=== PATIENT | male | born 1970 | race Hispanic/Latino ===

== ENCOUNTER 2018-03-07 16:55 | Inpatient (IN) | payer SELFPAY ==
[2018-03-07 17:13] LABS: #Basophils 0.1 thou/uL (0.0-0.2); #Eosinphils 0.1 thou/uL (0.0-0.7); #Lymphocytes 3.7 thou/uL (1.20-3.40); #Monocytes 0.4 thou/uL (0.11-0.59); #Neutrophils 5.9 thou/uL (1.40-6.50); %Basophils 0.9 % (0.0-1.0); %Lymphocytes 36.1 % (21.0-51.0); %Monocytes 3.7 % (0.0-10.0); %Neutrophils 58.2 % (42.0-75.0); Hemoglobin 15.1 g/dL (14.0-18.0); Mean Corpuscular HGB CONC 32.3 g/dL (32.0-36.0); Mean Corpuscular Hemoglobin 33.6 pg (27.0-31.0); Mean Platelet Volume 9.6 fL (7.4-10.4); Platelet Count 126 thou/uL (130-400); RBC Distribution Width 12.6 % (11.5-14.5); Red Blood Cell (RBC) Count 4.49 mill/uL (4.70-6.10); White Blood Cell (WBC) Count 10.2 thou/uL (4.8-10.8)
[2018-03-07] MEDS ORDERED: EPINEPHrine 1 MG, Admixture Fee 1 EACH in Dextrose 5% in Water 250 ML IVPB SCH (17:15)
[2018-03-07 17:17] LABS: Actual Bicarbonate (HCO3a) 16.9 mEq/L (22-26); Base Excess (BEa) -12.5 mEq/L (0 (+/-) 2.5); CO2 Tension 52.6 mmHg (35.0-45.0); O2 Tension (PaO2) 90.1 mmHg (80.0-100.0); pH, Arterial 7.12 (7.35-7.45)
[2018-03-07] MEDS ORDERED: Naloxone HCl 0.4 mg/ml Vial ONE (17:17)
[2018-03-07 17:18] LABS: Analyzer IN Cardio ER; Calcium, Ionized 1.1 mmol/L (1.12-1.30); Puncture Site RBA
[2018-03-07 17:31] LABS: Bilirubin Negative (Negative); Blood, Urine Trace (Negative); Clarity CLEAR (Clear); Glucose, Urine (Dipstick) >=1000 mg/dL (Negative); Leukocyte Negative (Negative); Nitrite Negative (Negative); Protein, Urine (Dipstick) 30 mg/dL (Neg-Trace); Specific Gravity, Urine 1.037 (1.002-1.036); Urobilinogen 0.2 mg/dL (0.2-1.0); pH, Urine 5.5 (5.0-9.0)
[2018-03-07 17:33] LABS: Pathc Cast-AUWi Flag 1.01 (0-2.49)
[2018-03-07 17:34] LABS: ALT (SGPT) 740 U/L (8-55); AST (SGOT) 1405 U/L (5-34); Albumin 3.4 g/dL (3.5-5.0); Alkaline Phosphatase 262 U/L (40-150); Anion Gap 23 mmol/L (10-20); BUN (Urea Nitrogen) 15 mg/dL (8.4-25.7); Bilirubin, Total 0.6 mg/dL (0.2-1.2); CK (CPK) 117 U/L (30-200); Calc. Creatinine Clearance 0 mL/min (70-130); Calcium 8.6 mg/dL (7.8-10.44); Carbon Dioxide 15 mmol/L (22-29); Chloride 94 mmol/L (98-107); Estimated GFR-MDRD 43; Globulin 2.8 g/dL (2.4-3.5); Potassium 4.1 mmol/L (3.5-5.1); Protein, Total 6.2 g/dL (6.0-8.3); Sodium 128 mmol/L (136-145)
[2018-03-07 17:39] LABS: CKMB 4.6 ng/mL (0-6.6)
[2018-03-07 17:42] LABS: Glucose 975 mg/dL (70-105)
[2018-03-07 17:42] LABS: Amphetamine Not Detected (NotDetected); Barbiturates Screen Not Detected (NotDetected); Benzodiazepine Screen Not Detected (NotDetected); Cocaine Metabolite Screen Not Detected (NotDetected); Medtox Control Line Valid? VALID (VALID); Medtox Reader # READER 4; Methadone Not Detected (NotDetected); Methamphetamine Not Detected (NotDetected); Opiate Screen Not Detected (NotDetected); Oxycodone Screen Not Detected (NotDetected); Phencyclidine (PCP) Not Detected (NotDetected); THC/Cannabinoid Screen Not Detected (NotDetected); Tricyclic Screen Not Detected (NotDetected)
[2018-03-07 17:43] LABS: RBC/HPF None Seen HPF (0-3); Squamous Epithelial 0-3 HPF (0-3); WBC/HPF None Seen HPF (0-3)
[2018-03-07 17:44] LABS: Bacteria/HPF None Seen HPF (None Seen); Hyaline Casts/LPF NONE SEEN LPF (0-3 Hyaline)
[2018-03-07 17:45] LABS: Troponin I 0.582 ng/mL (< 0.028)
--- NOTE | 2018-03-07 17:54 | RAD ---
AP VIEW CHEST: INDICATIONS: Emergency examination with chest pain. FINDINGS: There is an ET tube tip projecting 5.8 cm from the level of the jason. A gastric catheter projects in the region of the gastric cardia. There is bilateral perihilar air space opacity and pulmonary va scular congestion. Heart size is within normal limits. No focal consolidation, pleural effusion, or pneumothorax is evident. IMPRESSION: 1. Intubation with gastric catheter placement. 2. Pulmonary vascular congestion with perihilar air space opacities suspicious for edema. Heart siz e is within normal limits. 3. No pneumothorax demonstrate. POS: [facility]
[2018-03-07] MEDS ORDERED: Lidocaine 1% (PF) 30 ML VIAL ONE (17:57)
[2018-03-07] MEDS ORDERED: HumaLOG 300 UNITS/3 ML VIAL ONE (18:01)
[2018-03-07] MEDS ORDERED: Insulin Regular 300 UNITS/3 ML VIAL ONE (18:03)
[2018-03-07] MEDS ORDERED: Metoprolol Tartrate 5 MG/5 ML VIAL ONE ×2 (18:17→19:00)
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
[2018-03-07] MEDS ORDERED: Insulin Regular 100 units/100 ml in NS IVPB SCH (18:30)
[2018-03-07] MEDS ORDERED: NS 0.9% w/ 40 MEQ KCL 1,000 ML IV SCH (18:30)
[2018-03-07] MEDS ORDERED: Heparin 5,000 UNITS/ML VIAL ONE (18:32)
[2018-03-07] MEDS ORDERED: Mag-Al 1200 mg/1200 mg/30 ML UDCUP PO PRN (18:38)
[2018-03-07] MEDS ORDERED: Bisacodyl 10 MG SUPP PR PRN (18:38)
[2018-03-07] MEDS ORDERED: NS 0.9% w/ 20 MEQ KCL 1,000 ML IV PRN ×2 (18:38)
[2018-03-07] MEDS ORDERED: D5 1/2 NS w/20 mEq KCL 1,000 ML IV PRN (18:38)
[2018-03-07] MEDS ORDERED: CCU Electrolyte Replacement 1 EACH IVPB ONE ×2 (18:38)
[2018-03-07] MEDS ORDERED: Milk Of Magnesia 30 ML UDCUP PO PRN (18:38)
[2018-03-07] MEDS ORDERED: Ondansetron HCl/PF 4 MG/2 ML Vial IVP PRN (18:38)
[2018-03-07] MEDS ORDERED: Sodium Chloride 0.9% 1,000 ML IV PRN ×4 (18:38)
[2018-03-07] MEDS ORDERED: Dextrose 5 %-0.45 % NaCl 1,000 ML IV PRN (18:38)
[2018-03-07] MEDS ORDERED: Acetaminophen 650 MG Suppository PR PRN (18:38)
[2018-03-07] MEDS ORDERED: Fentanyl 100 MCG/2 ML VIAL ONE (18:44)
[2018-03-07] MEDS ORDERED: Ventilator Sedation Protocol 1 EACH FS SCH (18:45)
[2018-03-07] MEDS ORDERED: Fentanyl BOLUS 250 ML IVPB PRN (18:51)
[2018-03-07] MEDS ORDERED: fentaNYL Citrate/PF 2,000 MCG in Sodium Chloride 0.9% 60 ML IV SCH (18:51)
[2018-03-07] MEDS ORDERED: DISCONTINUE PREVIOUS NARCOTIC PAIN MEDICATIONS AND BENZODIAZEPINES FS SCH (18:51)
[2018-03-07] MEDS ORDERED: Morphine 4 MG/ML VIAL SLOW IVP PRN (18:51)
[2018-03-07] MEDS ORDERED: Propofol BOLUS 1,000 MG/100 ML VIAL IV PRN (18:51)
[2018-03-07] MEDS ORDERED: CCU ELECTROLYTE REPLACEMENT PROTOCOL FS PRN (18:53)
[2018-03-07] MEDS ORDERED: Potassium Phosphate 12 MMOL in Sodium Chloride 0.9% 250 ML 250 ML IV PRN (18:53)
[2018-03-07] MEDS ORDERED: Magnesium Oxide 400 MG TAB PO PRN ×2 (18:53)
[2018-03-07] MEDS ORDERED: Potassium Phosphate 9 MMOL in Sodium Chloride 0.9% 100 ML IVPB PRN (18:53)
[2018-03-07] MEDS ORDERED: Potassium Chloride 20 MEQ TAB PO PRN (18:53)
[2018-03-07] MEDS ORDERED: Potassium Chloride 40 MEQ in Sodium Chloride 0.9% 250 ML 250 ML IVPB PRN (18:53)
[2018-03-07] MEDS ORDERED: Magnesium 2 GM/NS 0.9% 100 ML 2 GM in Premix Bag 1 BAG IVPB PRN (18:53)
[2018-03-07] MEDS ORDERED: Potassium Phosphate 15 MMOL in Sodium Chloride 0.9% 250 ML 250 ML IV PRN (18:53)
[2018-03-07 18:55] LABS: Anion Gap 22 mmol/L (10-20); BUN (Urea Nitrogen) 16 mg/dL (8.4-25.7); Calc. Creatinine Clearance 0 mL/min (70-130); Carbon Dioxide 14 mmol/L (22-29); Chloride 102 mmol/L (98-107); Estimated GFR-MDRD 54; Potassium 3.5 mmol/L (3.5-5.1); Sodium 134 mmol/L (136-145)
[2018-03-07] MEDS ORDERED: Nitroglycerin 50 MG/250 ML BOT ONE (19:00)
[2018-03-07] MEDS ORDERED: EPINEPHrine 1 MG/10 ML Abboject SYRINGE ONE (19:00)
[2018-03-07] MEDS ORDERED: Midazolam HCl 2 mg/2 ml Vial ONE ×2 (19:00→19:34)
[2018-03-07 19:07] LABS: Glucose 734 mg/dL (70-105)
[2018-03-07] MEDS ORDERED: Lorazepam 2 MG/ML VIAL ONE ×2 (19:25→19:51)
[2018-03-07 19:28] LABS: HBCM Index 0.05 S/CO (0-0.79); HBSAg Index 0.24 S/CO (0-0.99); Hep A IgM AB Non-Reactive (NonReactive); Hep A IgM S/CO 0.14 S/CO (0-0.79); Hep B Surf Ag Non-Reactive S/CO (NonReactive); Hep C IgG Ab Non-Reactive (NonReactive); Hep C Index 0.25 S/CO (0-0.79); Hepatitis B Core IGM Abs Non-Reactive (NonReactive)
[2018-03-07] MEDS ORDERED: Heparin 25,000 units/D5W 500 ML IVPB SCH (19:45)
[2018-03-07] MEDS ORDERED: Heparin 10,000 UNITS/ 10 ML VIAL SLOW IVP SCH (19:45)
[2018-03-07] MEDS ORDERED: Amiodarone HCl 450 MG, Admixture Fee 1 EACH in Dextrose 5% in Water 250 ML IVPB SCH (19:45)
[2018-03-07] MEDS ORDERED: Amiodarone In Dextrose 200 ML IVPB SCH (19:45)
[2018-03-07 20:10] LABS: Hemoglobin 14.8 g/dL (14.0-18.0); Platelet Count 151 thou/uL (130-400)
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
[2018-03-07 20:36] LABS: CKMB 21.2 ng/mL (0-6.6); Troponin I 2.578 ng/mL (< 0.028)
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
[2018-03-07] MEDS ORDERED: Famotidine/PF 20 mg/2ml Vial SLOW IVP SCH (21:00)
[2018-03-07] MEDS ORDERED: Heparin 10,000 UNITS/1 ML VIAL ONE (21:37)
[2018-03-07] MEDS ORDERED: Bivalirudin 250 MG VIAL ONE (21:41)
[2018-03-07] MEDS ORDERED: DOPamine 400 MG/D5W 250 ML 250 ML ONE (21:41)
[2018-03-07] MEDS ORDERED: Heparin 25,000 units/D5W 500 ML ONE (22:23)
[2018-03-07] MEDS ORDERED: Clopidogrel Bisulfate 300 MG TAB PER TUBE SCH (23:00)
[2018-03-07] MEDS ORDERED: DOPamine 400 MG/D5W 250 ML 250 ML IVPB SCH (23:15)
[2018-03-07] MEDS ORDERED: Famotidine 20 MG TAB PER TUBE SCH (23:45)
[2018-03-07] MEDS: Sodium Chloride 0.9% 1,000 ML IV SCH (23:53)
[2018-03-07 23:59] LABS: Anion Gap 17 mmol/L (10-20); BUN (Urea Nitrogen) 16 mg/dL (8.9-20.6); Calc. Creatinine Clearance 72 mL/min (70-130); Calcium 7.5 mg/dL (7.8-10.44); Carbon Dioxide 16 mmol/L (22-29); Chloride 110 mmol/L (98-107); Estimated GFR-MDRD 58; Potassium 4.5 mmol/L (3.5-5.1); Sodium 138 mmol/L (136-145)
[2018-03-08 00:03] LABS: Glucose 589 mg/dL (70-105)
[2018-03-08 00:26] LABS: Troponin I 94.554 ng/mL (< 0.028)
[2018-03-08] MEDS: Propofol 1,000 MG/100 ML VIAL IV PRN ×3 (00:28→16:44)
[2018-03-08] MEDS: Lorazepam 2 MG/ML VIAL SLOW IVP PRN ×2 (02:18→15:18)
[2018-03-08] MEDS: Vecuronium 10 MG VIAL IV PRN ×3 (04:16→12:30)
[2018-03-08 05:46] LABS: Band 20 % (5-11); Hemoglobin 15.3 g/dL (14.0-18.0); Lymphocytes 11 % (21-51); MDiff Complete? YES; Mean Corpuscular HGB CONC 32.6 g/dL (32.0-36.0); Mean Corpuscular Hemoglobin 32.4 pg (27.0-31.0); Mean Corpuscular Volume 99.2 fl (80.0-94.0); Mean Platelet Volume 9.1 fL (7.4-10.4); Monocytes 4 % (0-10); Myelocyte 1 % (0-0); Neutrophil 63 % (42-75); Platelet Count 133 thou/uL (130-400); RBC Distribution Width 12.7 % (11.5-14.5); Reactive Lymphocytes 1 % (0-10); Red Blood Cell (RBC) Count 4.72 mill/uL (4.70-6.10); White Blood Cell (WBC) Count 8.4 thou/uL (4.8-10.8)
[2018-03-08 06:26] LABS: Calcium 8.5 mg/dL (7.8-10.44)
[2018-03-08 06:31] LABS: ALT (SGPT) 857 U/L (8-55); AST (SGOT) 1887 U/L (5-34); Albumin 3.3 g/dL (3.5-5.0); Alkaline Phosphatase 196 U/L (40-150); Anion Gap 11 mmol/L (10-20); BUN (Urea Nitrogen) 14 mg/dL (8.9-20.6); Bilirubin, Direct 0.3 mg/dL (0.1-0.3); Bilirubin, Total 0.4 mg/dL (0.2-1.2); Calc. Creatinine Clearance 105 mL/min (70-130); Carbon Dioxide 23 mmol/L (22-29); Chloride 114 mmol/L (98-107); Estimated GFR-MDRD 90; Globulin 2.5 g/dL (2.4-3.5); Glucose 287 mg/dL (70-105); Potassium 3.7 mmol/L (3.5-5.1); Protein, Total 5.8 g/dL (6.0-8.3); Sodium 144 mmol/L (136-145)
[2018-03-08 06:42] LABS: Troponin I 166.723 ng/mL (< 0.028)
[2018-03-08] MEDS ORDERED: Metoprolol Tartrate 5 MG/5 ML VIAL IVP PRN (06:54)
[2018-03-08] MEDS: Sodium Chloride 0.9% 1,000 ML IV SCH ×3 (07:00→20:04)
[2018-03-08] MEDS ORDERED: Sodium Chloride 0.9% 250 ML 250 ML IVPB SCH (07:00)
[2018-03-08 07:19] LABS: Actual Bicarbonate (HCO3a) 17.7 mEq/L (22-26); Base Excess (BEa) -9.4 mEq/L (0 (+/-) 2.5); CO2 Tension 42.6 mmHg (35.0-45.0); Hematocrit-ABG 40.9 % (42.0-52.0); O2 Tension (PaO2) 107.6 mmHg (80.0-100.0); pH, Arterial 7.24 (7.35-7.45)
[2018-03-08 07:20] LABS: Calcium, Ionized 1.2 mmol/L (1.12-1.30); Puncture Site ALINE
--- NOTE | 2018-03-08 07:38 | ULT ---
GALLBLADDER ULTRASOUND: Date: 03/08/18 HISTORY: Right upper quadrant pain. FINDINGS: Real-time imaging of the right upper quadrant demonstrates a normal appearing gallbladder. Common enio t is 4.0 mm. Technologist reports a negative ultrasound Fuentes's sign. The liver is of increased echo genicity, it measures 18.6 cm in length. Pancreas is fairly well visualized and normal. Right kidney is normal size and nonobstructed. IMPRESSION: Fatty changes of the liver. POS: [facility]
--- NOTE | 2018-03-08 07:43 | PRG ---
DATE OF SERVICE: 03/08/2018 This is 45 minutes critical care time. Mr. Guallpa remains in the CCU on mechanical ventilation. He is under hypothermia protocol. He did undergo cardiac catheterization last night. I believe he did have occlusion of his right coronary a rtery and required stenting. He has had difficulty during the night with shivering from the hypother milka and has required paralysis for that. PHYSICAL EXAMINATION: VITAL SIGNS: His temperature is currently 95.4, pulse 76, blood pressure 109/65. His intake and out take totals are not complete yet, but he is having reasonable urine output with 2380 out from the Fo regina. NEURO: Neurologically he is difficult to assess because he is currently paralyzed, although last nig ht he did have pupillary reflexes and did withdraw. HEENT: Otherwise, unremarkable. NECK: No JVD. LUNGS: Coarse rhonchi. CARDIOVASCULAR: S1, S2, tachycardic without murmur. ABDOMEN: Soft, nontender, nondistended. EXTREMITIES: No edema. LABORATORY DATA: White blood cell count 8.4, hemoglobin 15, hematocrit 46.9, platelet count 133. PT T 111, pH 7.24, pCO2 42, PO2 of 107 on SIMV rate 14, tidal volume 500, PEEP 5, pressure support 10, F iO2 50%. Sodium 144, potassium 3.7, chloride 114, CO2 23, BUN 14, creatinine 0.9, glucose 287. Chest x-ray demonstrates an endotracheal tube that is above the jason. Lung olivares with some perihi lar edema. ASSESSMENT: 1. Cardiac arrest secondary to coronary artery disease. The arrest was V-tach, V-fib and he was chloe n for a considerable amount of time. 2. Acute respiratory failure secondary to cardiac arrest. 3. Hyperglycemia. 4. Transaminitis, likely secondary to shock liver. PLAN: 1. Continue hypothermia and begin rewarming later tonight. 2. Hold off on tube feeds until he is out of the hypothermia. 3. Continue insulin drip. 4. Monitor labs including transaminases daily. 5. Update family when they present themselves.
[2018-03-08] MEDS: Norepinephrine 8 MG/0.9% NS 250 ML IVPB PRN ×3 (08:09→23:28)
--- NOTE | 2018-03-08 08:25 | PDOC.PN ---
- Subjective Encounter Start Date: 03/08/18 Encounter Start Time: 08:22 Subjective: intubated, sedated - Objective Resuscitation Status: Resuscitation Status FULL:Full Resuscitation MAR Reviewed: Yes Vital Signs & Weight: Vital Signs (12 hours) Temp Pulse Resp BP Pulse Ox 03/08/18 06:37 122 H 90/56 L 03/08/18 06:31 123 H 14 03/08/18 06:00 95.4 F L 14 03/08/18 05:00 96.3 F L 03/08/18 04:00 14 03/08/18 03:14 103 H 87/62 L 03/08/18 02:00 96.0 F L 14 03/08/18 01:00 95.5 F L 03/08/18 00:00 14 03/07/18 23:50 122 H 115/65 03/07/18 23:00 98.6 F 103 H 14 99 03/07/18 22:50 98.6 F 03/07/18 22:30 14 Weight Weight 162 lb 14.746 oz Most Recent Monitor Data Heart Rate from ECG 128 NIBP 87/73 NIBP BP-Mean 81 Respiration from ECG 16 SpO2 100 I&O: 03/07/18 03/08/18 03/09/18 06:59 06:59 06:59 Intake Total 2803.8 Output Total 3155 Balance -351.2 Result Diagrams: 03/08/18 05:00 03/08/18 05:00 Additional Labs: Accuchecks 03/08/18 03/08/18 03/08/18 07:23 06:13 05:12 POC Glucose 229 H 252 H 253 H 03/08/18 03/08/18 03/08/18 03:21 02:00 01:04 POC Glucose 372 H 348 H 416 H 03/07/18 03/07/18 23:55 22:51 POC Glucose 455 H 523 H Radiology Reviewed by me: Yes (cxr- perihilar infiltrate) Phys Exam - Physical Examination Constitutional: NAD Neck: no JVD coarse bs Cardiovascular: RRR, no significant murmur Gastrointestinal: soft, non-tender, positive bowel sounds Musculoskeletal: no edema Dx/Plan (1) Acute myocardial infarction Code(s): I21.9 - ACUTE MYOCARDIAL INFARCTION, UNSPECIFIED Status: Acute (2) Cardiopulmonary arrest Code(s): I46.9 - CARDIAC ARREST, CAUSE UNSPECIFIED Status: Acute (3) Acute renal failure Status: Acute Qualifiers: Acute renal failure type: unspecified Qualified Code(s): N17.9 - Acute kidney failure, unspecified (4) DKA (diabetic ketoacidoses) Code(s): E13.10 - OTH DIABETES MELLITUS WITH KETOACIDOSIS WITHOUT COMA Status : Acute - Plan cont iv insulin, serial accu, bmp -: on pressors, titrate as needed -: cont vent support, discuss with pulmonology -: post card cath- stent * .
--- NOTE | 2018-03-08 08:35 | RAD ---
PORTABLE CHEST: History: Respiratory distress. Comparison: Prior day's study. FINDINGS: Endotracheal and NG tubes are in satisfactory position. Heart size and mediastinum are within normal limits. Parahilar markings are slightly increased, suggesting some element of edema. IMPRESSION: Slightly increased parahilar lung markings suggesting some mild edema change. Changes are fairly bishop lar given differences in technique from the prior exam. POS: [facility]
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
[2018-03-08] MEDS ORDERED: Dextrose 5% in Water 1,000 ML IV PRN (09:23)
[2018-03-08] MEDS ORDERED: Dextrose 50% Abboject 50 ML SYRINGE IVP PRN (09:23)
[2018-03-08] MEDS: Famotidine 20 MG TAB PER TUBE SCH ×2 (09:44→20:03)
[2018-03-08] MEDS: Lisinopril 2.5 MG TAB PO SCH (09:45)
[2018-03-08] MEDS: Insulin Regular 300 UNITS/3 ML VIAL SC PRN ×2 (12:10→16:11)
[2018-03-08 14:07] LABS: Hemoglobin 13.6 g/dL (14.0-18.0); Mean Corpuscular Hemoglobin 33.5 pg (27.0-31.0); Mean Platelet Volume 11.5 fL (7.4-10.4); Platelet Count 96 thou/uL (130-400); RBC Distribution Width 12.8 % (11.5-14.5); Red Blood Cell (RBC) Count 4.06 mill/uL (4.70-6.10); White Blood Cell (WBC) Count 4.6 thou/uL (4.8-10.8)
[2018-03-08 14:11] LABS: INR-International Normal Ratio 1.2; Prothrombin Time 15.1 SEC (12.0-14.7)
[2018-03-08 14:26] LABS: #Lymphocytes 0.8 thou/uL (1.20-3.40); #Monocytes 0.3 thou/uL (0.11-0.59); #Neutrophils 3.5 thou/uL (1.40-6.50); %Basophils 0.1 % (0.0-1.0); %Eosinophils 0.1 % (0.0-10.0); %Lymphocytes 17.5 % (21.0-51.0); %Monocytes 6.4 % (0.0-10.0); PLT Morphology Comment Appears Decreased
[2018-03-08 14:33] LABS: Anion Gap 13 mmol/L (10-20); BUN (Urea Nitrogen) 16 mg/dL (8.9-20.6); Calc. Creatinine Clearance 135 mL/min (70-130); Calcium 7.6 mg/dL (7.8-10.44); Carbon Dioxide 14 mmol/L (22-29); Chloride 119 mmol/L (98-107); Estimated GFR-MDRD Greater than 90; Glucose 283 mg/dL (70-105); Magnesium 1.6 mg/dL (1.6-2.6); Phosphorus 2.5 mg/dL (2.3-4.7); Potassium 3.8 mmol/L (3.5-5.1); Sodium 142 mmol/L (136-145)
[2018-03-08 15:22] LABS: CKMB 161.3 ng/mL (0-6.6); Troponin I 120.942 ng/mL (< 0.028)
--- NOTE | 2018-03-08 22:39 | PDOC.CTH ---
Cardiology Progress Note - Subjective The pt. was seen and evaluated by me. He remains sedated and on the ventilator and a cooling blanket . He suffered an acute inferior STEMI yesterday. He was taken to the crown and bridge dental lab technician where he underwent PTCA,thombus aspiration from the RCA and stent placement to the same area. It appears liely that he has suffered a moderate to large VT and likely a right ventricular infarct due to the high RCA occlusion. The EF at the end of the procedure was about 55-60 % and the anteror wall was hyperdynamic and the inferior wall was severely hypokinetic to akinetic. 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 - ROS not able to obtain ROS - Objective Vital Signs Temp Pulse Resp BP Pulse Ox 03/08/18 22:00 20 03/08/18 20:00 98.8 F 103 H 20 100 03/08/18 19:12 103 H 99 03/08/18 19:11 99 03/08/18 19:00 98.8 F 03/08/18 18:00 25 H 03/08/18 16:00 94.6 F L 23 H 03/08/18 15:00 94.1 F L 03/08/18 14:48 108 H 106/63 03/08/18 14:00 22 H 03/08/18 13:18 101 H 20 96/59 L 99 03/08/18 12:01 113 H 122/61 03/08/18 12:00 20 03/08/18 11:00 94.8 F L Admit Weight 162 lb Weight 162 lb 14.746 oz 03/07/18 03/08/18 03/09/18 06:59 06:59 06:59 Intake Total 2803.8 1738.8 Output Total 3155 1340 Balance -351.2 398.8 - Physical Examination General/Neuro: other: (intubated/sedated.) Neck: no JVD present Lungs: CTA Heart: RRR Abdomen: no HSM, soft - Labs Result Diagrams: 03/08/18 13:37 03/08/18 13:37 Troponin/CKMB CK-MB (CK-2) 161.3 ng/mL (0-6.6) H* 03/08/18 13:37 Troponin I 120.942 ng/mL (< 0.028) H* 03/08/18 13:37 - Assessment/Plan 1. Inferior STEMI due to complete RCA occlusion with thrombus. There was delay in taking the pt. to the crown and bridge dental lab technician when he first arrived in the [place] the blood glucose was >900 and the pt originally was unrespon sive. When he bcame more stable then it was felt that he would be a candidate for the procedure. A large thrombus burden wass noted in the RCA and this underwent aspiration of some of the clot. A stent was placed to dilate the artery and stabaliz the remaining thrombus. Further interventioon may be a possibility if the mental status returns to a functional level. 2. Sudden cardiac : likely due to the above. 3. DMII: he presened with DKA and severely elevated blood glucose levels.The blood glucose was poorly controlled likely due to not taking his medications. He ran out of the new medication for thr DM 4. HTN.: relatively stable. Off pressors. Dyslipidemia. Statins when taking po. 5. Acute hepatic injury. Continue aggressive supportive therapy. BRENT-I,beta-blockers, plavix,ASAwhen able to take po meds.
[2018-03-09] MEDS: Acetaminophen 650 MG/20.3 ML UDCUP PO PRN ×2 (00:18→17:15)
[2018-03-09] MEDS: Propofol 1,000 MG/100 ML VIAL IV PRN ×5 (03:44→23:05)
[2018-03-09] MEDS: Sodium Chloride 0.9% 1,000 ML IV SCH ×3 (03:44→18:13)
[2018-03-09 04:20] LABS: ALT (SGPT) 532 U/L (8-55); AST (SGOT) 430 U/L (5-34); Albumin 2.5 g/dL (3.5-5.0); Alkaline Phosphatase 106 U/L (40-150); Anion Gap 10 mmol/L (10-20); BUN (Urea Nitrogen) 18 mg/dL (8.9-20.6); Bilirubin, Total 0.3 mg/dL (0.2-1.2); Calc. Creatinine Clearance 139 mL/min (70-130); Calcium 8.2 mg/dL (7.8-10.44); Carbon Dioxide 16 mmol/L (22-29); Chloride 120 mmol/L (98-107); Estimated GFR-MDRD Greater than 90; Globulin 2.2 g/dL (2.4-3.5); Glucose 180 mg/dL (70-105); Potassium 3.4 mmol/L (3.5-5.1); Protein, Total 4.7 g/dL (6.0-8.3); Sodium 143 mmol/L (136-145)
[2018-03-09 04:31] LABS: Band 23 % (5-11); Hemoglobin 12.9 g/dL (14.0-18.0); Lymphocytes 21 % (21-51); MDiff Complete? YES; Mean Corpuscular HGB CONC 35.3 g/dL (32.0-36.0); Mean Corpuscular Hemoglobin 34.8 pg (27.0-31.0); Mean Corpuscular Volume 98.6 fl (80.0-94.0); Mean Platelet Volume 8.8 fL (7.4-10.4); Monocytes 7 % (0-10); Neutrophil 49 % (42-75); Nucleated RBC 1 % (0); PLT Morphology Comment Appears Decreased; Platelet Count 77 thou/uL (130-400); RBC Distribution Width 12.8 % (11.5-14.5); Red Blood Cell (RBC) Count 3.72 mill/uL (4.70-6.10); White Blood Cell (WBC) Count 6.3 thou/uL (4.8-10.8)
[2018-03-09 07:29] LABS: pH, Arterial 7.34 (7.35-7.45)
[2018-03-09 07:30] LABS: Actual Bicarbonate (HCO3a) 13.7 mEq/L (22-26); Base Excess (BEa) -10.4 mEq/L (0 (+/-) 2.5); Hematocrit-ABG 33.6 % (42.0-52.0); Hemoglobin (Hb) 12.3 g/dL (14.0-18.0); O2 Tension (PaO2) 104.9 mmHg (80.0-100.0)
[2018-03-09 07:31] LABS: Calcium, Ionized 1.2 mmol/L (1.12-1.30); Puncture Site ALINE
--- NOTE | 2018-03-09 07:59 | PDOC.PULCC ---
CCU Progress Note: Subj/Obj - Subjective Date: 03/09/18 Time: 07:58 Narrative: Intubated on vent - Objective Allergies/Adverse Reactions: Allergies Allergy/AdvReac Type Severity Reaction Status Date / Time No Known Allergies Allergy Verified 03/07/18 23:45 MAR Reviewed: Yes Vital Signs and I&O: Vital Signs Temp 99.6 F 03/09/18 07:00 Pulse 103 H 03/09/18 06:26 Resp 20 03/09/18 06:25 BP 99/60 03/09/18 06:26 Pulse Ox 99 03/09/18 06:25 Intake & Output - 24 hours 03/09/18 03/10/18 06:59 06:59 Intake Total 3868.8 Output Total 1665 50 Balance 2203.8 -50 Weight 164 lb 7.437 oz Intake: Intake, IV Amount 3838.8 Heparin 25,000 units/D5W 48 500 ml @ Per Protocol IVPB INF SNOW Rx#:[id number] Insulin Regular (Human) 24 100 units In Sodium Chloride 0.9% 100 ml @ 8 UNITS/HR 8.08 mls/hr IVPB INF SNOW Rx#:[id number] Norepinephrine 8 MG/0.9% 482 NS 250 ml @ Titrate IVPB PRN PRN Rx#:[id number] Propofol 1000 mg (See 148 Protocol) IV INF PRN Rx#: [id number] Sodium Chloride 0.9% 1, 3108 000 ml @ 125 mls/hr IV . Q8H SNOW Rx#:[id number] fentaNYL Citrate/PF 2,000 28.8 mcg In Sodium Chloride 0 .9% 60 ml @ Per Protocol IV INF SNOW Rx#:[id number] Tube Irrigant 30 Output: Gastric Drainage 50 Output, Ordaz 1615 50 Other: Voiding Method Indwelling Catheter Vent Setting: SIMV 20/500/peep5/ps10/40% Spontaneous Breathing Test: not done (encephalopathic) CCU Progress Note: Exam - Physical Exam Deviation from normal: thrashing in bed HEENT: PERRLA, sclera anicteric Neck: no nodes, no JVD Cardiovascular: RRR Deviation from normal: tachy Respiratory: clear to auscultation bilaterally Gastrointestinal: soft, non-tender Musculoskeletal: no edema Neurological: moves all 4 limbs Deviation from normal: won't follow commands Deviation from normal: unable to follow Skin: no rash CCU Progress Note: Data - Labs Result Diagrams: 03/09/18 03:45 03/09/18 03:45 - ABG Interpretation Attestation: I reviewed and interpreted this ABG. ABG Results: ABG pH 7.34 (7.35-7.45) L 03/09/18 07:15 ABG pCO2 26.0 mmHg (35.0-45.0) L 03/09/18 07:15 ABG O2 Sat Calc/Matty 97.8 % (94.0-100.0) 03/09/18 07:15 ABG Base Excess -10.4 mEq/L (0 (+/-) 2.5) L 03/09/18 07:15 Interpretation: metabolic acidosis - Radiology Interpretation Chest x-ray Status: image reviewed by me (Pulm edema present) CCU Progress Note: A/P - Problems (1) Acute respiratory failure with hypoxia Current Visit: Yes Status: Acute Code(s): J96.01 - ACUTE RESPIRATORY FAILURE WITH HYPOXIA (2) Acute myocardial infarction Current Visit: Yes Status: Acute Code(s): I21.9 - ACUTE MYOCARDIAL INFARCTION, UNSPECIFIED (3) Acute renal failure Current Visit: Yes Status: Acute Qualifiers: Acute renal failure type: unspecified Qualified Code(s): N17.9 - Acute kidney failure, unspecified (4) Cardiopulmonary arrest Current Visit: Yes Status: Acute Code(s): I46.9 - CARDIAC ARREST, CAUSE UNSPECIFIED (5) DKA (diabetic ketoacidoses) Current Visit: Yes Status: Acute Code(s): E13.10 - OTH DIABETES MELLITUS WITH KETOACIDOSIS WITHOUT COMA - Time Spent with Patient Time (minutes): 30 (cc time) - Plan Plan: I spoke with daughter who was at bedside. Patient is grossly encephalopathic and we are unable to proceed with weaning and extubation until that improves. Today we will attempt to wean off levophed. Start TF. I adjusted vent.
--- NOTE | 2018-03-09 08:45 | PDOC.PN ---
- Subjective Encounter Start Date: 03/09/18 Encounter Start Time: 08:43 Subjective: intubated, nonresponsive - Objective Resuscitation Status: Resuscitation Status FULL:Full Resuscitation MAR Reviewed: Yes Vital Signs & Weight: Vital Signs (12 hours) Temp Pulse Resp BP Pulse Ox 03/09/18 07:00 99.6 F 03/09/18 06:26 103 H 99/60 03/09/18 06:25 100 20 99 03/09/18 06:00 20 03/09/18 04:00 20 03/09/18 03:33 101 H 113/70 03/09/18 03:00 98.4 F 03/09/18 02:00 20 03/09/18 01:25 103 H 03/09/18 01:24 100 03/09/18 00:00 20 03/08/18 23:00 100.1 F H 03/08/18 22:32 103 H 104/67 03/08/18 22:00 20 Weight Admit Weight 162 lb Weight 164 lb 7.437 oz Most Recent Monitor Data Heart Rate from ECG 102 NIBP 95/70 NIBP BP-Mean 81 Respiration from ECG 20 SpO2 100 I&O: 03/08/18 03/09/18 03/10/18 06:59 06:59 06:59 Intake Total 2803.8 3868.8 Output Total 3155 1665 110 Balance -351.2 2203.8 -110 Result Diagrams: 03/09/18 03:45 03/09/18 03:45 Additional Labs: Accuchecks 03/09/18 03/08/18 03/08/18 00:06 20:13 16:12 POC Glucose 135 H 164 H 255 H 03/08/18 03/08/18 12:08 09:11 POC Glucose 209 H 125 H Radiology Reviewed by me: Yes (cxr-ET/NG tubes, no infiltrate) Phys Exam - Physical Examination Neck: no JVD Respiratory: clear to auscultation bilateral Cardiovascular: RRR, no significant murmur Gastrointestinal: non-tender, positive bowel sounds Musculoskeletal: no edema Neurological: non-focal PERRL, neg doll's eye manuver Dx/Plan (1) Acute myocardial infarction Code(s): I21.9 - ACUTE MYOCARDIAL INFARCTION, UNSPECIFIED Status: Acute Qualifiers: Myocardial infarction type: ST elevation myocardial infarction Involved coronary artery: right coronary artery Qualified Code(s): I21.11 - ST elevation (STEMI) myocardial infarction involving right coronary artery (2) Cardiopulmonary arrest Code(s): I46.9 - CARDIAC ARREST, CAUSE UNSPECIFIED Status: Acute (3) Acute renal failure Status: Resolved Qualifiers: Acute renal failure type: unspecified Qualified Code(s): N17.9 - Acute kidney failure, unspecified (4) DKA (diabetic ketoacidoses) Code(s): E13.10 - OTH DIABETES MELLITUS WITH KETOACIDOSIS WITHOUT COMA Status : Acute (5) Hypotension arterial Status: Acute Qualifiers: Hypotension type: unspecified hypotension type Qualified Code(s): I95.9 - Hypotension, unspecified Comment: post cardiac arrest - Plan still vent dependent -: weaning off levofed -: on accu/ss -: on asa -: discuss with Card. rochelle Pulmonology * .
--- NOTE | 2018-03-09 09:07 | RAD ---
PORTABLE SEMI UPRIGHT FRONTAL CHEST RADIOGRAPH: Date: 03-09-18 Comparison: 03-08-18 History: Ventilated patient. FINDINGS: Stable endotracheal tube and nasogastric tube. No pneumothorax noted. Hazy increased density in the l eft base suggests left lower lobe volume loss or partial consolidation with probable left pleural eff usion. Mild streaky opacity in the right perihilar region and infrahilar region may signify mild infi ltrate or vascular congestion. IMPRESSION: Slight interval worsening in left basilar aeration. Continued follow up advised. POS: JOSE JUAN
[2018-03-09] MEDS: Lisinopril 2.5 MG TAB PO SCH (09:39)
[2018-03-09] MEDS: Famotidine 20 MG TAB PER TUBE SCH ×2 (10:16→20:24)
[2018-03-09] MEDS ORDERED: Pancrelipase DR 12000 1 CAP FS PRN (10:17)
[2018-03-09] MEDS ORDERED: Sodium Bicarbonate Tab 325 MG TAB PER TUBE PRN (10:17)
[2018-03-09] MEDS: Insulin Regular 300 UNITS/3 ML VIAL SC PRN ×3 (12:41→20:25)
--- NOTE | 2018-03-09 18:31 | PDOC.CTH ---
Cardiology Progress Note - Objective Vital Signs Temp Pulse Pulse Pulse Resp BP BP 03/09/18 18:16 108 H 90/65 03/09/18 17:57 21 H 03/09/18 17:00 100.9 F H 03/09/18 16:00 22 H 03/09/18 15:00 98.9 F 03/09/18 14:22 110 H 110/67 03/09/18 14:00 16 03/09/18 13:55 98 99 99/60 03/09/18 13:36 100 94/56 L 03/09/18 13:34 100 21 H 03/09/18 11:54 98.1 F 03/09/18 11:50 20 03/09/18 10:14 100 97/57 L 03/09/18 10:00 18 03/09/18 09:39 103 H 96/56 L 03/09/18 08:00 97.8 F 100 20 03/09/18 07:00 99.6 F BP Pulse Ox Pulse Ox Pulse Ox 03/09/18 18:16 03/09/18 17:57 03/09/18 17:00 03/09/18 16:00 03/09/18 15:00 03/09/18 14:22 03/09/18 14:00 03/09/18 13:55 98/59 L 100 100 03/09/18 13:36 03/09/18 13:34 99 03/09/18 11:54 03/09/18 11:50 03/09/18 10:14 03/09/18 10:00 03/09/18 09:39 03/09/18 08:00 100 03/09/18 07:00 Admit Weight 162 lb Weight 164 lb 7.437 oz 03/08/18 03/09/18 03/10/18 06:59 06:59 06:59 Intake Total 2803.8 3868.8 2070 Output Total 3155 1665 1430 Balance -351.2 2203.8 640 - Physical Examination General/Neuro: other: (Pt. on ventilator. Non-responsive.) Neck: carotid US brisk, no JVD present Lungs: CTA Heart: RRR Abdomen: NT/ND - Telemetry Telemetry Rhythm: sinus to sinus tach - Labs Result Diagrams: 03/09/18 03:45 03/09/18 03:45 Troponin/CKMB CK-MB (CK-2) 161.3 ng/mL (0-6.6) H* 03/08/18 13:37 Troponin I 120.942 ng/mL (< 0.028) H* 03/08/18 13:37 - Assessment/Plan 1. Inferior STEMI due to complete RCA occlusion with thrombus. There was delay in taking the pt. to the laboratory machinist when he first arrived in the ER the blood glucose was >900 and the pt originally was unresponsive. When he bcame more stable then it was felt that he would be a candidate for the procedure. A large thrombus burden wass noted in the RCA and this underwent aspiration of some of the clot. A stent was placed to dilate the artery and stabaliz the remaining thrombus. Further interventioon may be a possibility if the mental status returns to a functional level. 2. Sudden cardiac : likely due to the above. 3. DMII: he presened with DKA and severely elevated blood glucose levels.The blood glucose was poorly controlled likely due to not taking his medications. 4. HTN.: relatively stable. Off pressors. 5.Dyslipidemia. Statins when taking po. 6. Acute hepatic injury. 7. Encephalopathy. Due to SCD. Anoxic brain injury.
[2018-03-09] MEDS: Lorazepam 2 MG/ML VIAL SLOW IVP PRN (20:28)
[2018-03-10] MEDS: Insulin Regular 300 UNITS/3 ML VIAL SC PRN ×5 (00:25→15:44)
[2018-03-10] MEDS: Sodium Chloride 0.9% 1,000 ML IV SCH ×4 (00:28→20:46)
[2018-03-10 05:54] LABS: #Lymphocytes 1.1 thou/uL (1.20-3.40); #Monocytes 0.3 thou/uL (0.11-0.59); #Neutrophils 4.1 thou/uL (1.40-6.50); %Basophils 0.3 % (0.0-1.0); %Eosinophils 0.5 % (0.0-10.0); %Lymphocytes 19.5 % (21.0-51.0); %Monocytes 6.2 % (0.0-10.0); %Neutrophils 73.5 % (42.0-75.0); Hemoglobin 11.6 g/dL (14.0-18.0); Mean Corpuscular HGB CONC 33.4 g/dL (32.0-36.0); Mean Corpuscular Hemoglobin 33.1 pg (27.0-31.0); Mean Platelet Volume 9.9 fL (7.4-10.4); Platelet Count 64 thou/uL (130-400); RBC Distribution Width 12.7 % (11.5-14.5); White Blood Cell (WBC) Count 5.5 thou/uL (4.8-10.8)
[2018-03-10 05:55] LABS: ALT (SGPT) 334 U/L (8-55); AST (SGOT) 123 U/L (5-34); Albumin 2.5 g/dL (3.5-5.0); Alkaline Phosphatase 109 U/L (40-150); Anion Gap 6 mmol/L (10-20); BUN (Urea Nitrogen) 14 mg/dL (8.9-20.6); Bilirubin, Total 0.5 mg/dL (0.2-1.2); Calc. Creatinine Clearance 131 mL/min (70-130); Calcium 8.4 mg/dL (7.8-10.44); Carbon Dioxide 21 mmol/L (22-29); Chloride 121 mmol/L (98-107); Estimated GFR-MDRD Greater than 90; Globulin 2.4 g/dL (2.4-3.5); Glucose 245 mg/dL (70-105); Potassium 3.2 mmol/L (3.5-5.1); Protein, Total 4.9 g/dL (6.0-8.3); Sodium 145 mmol/L (136-145)
[2018-03-10 07:24] LABS: Actual Bicarbonate (HCO3a) 18.3 mEq/L (22-26); Base Excess (BEa) -5.1 mEq/L (0 (+/-) 2.5); CO2 Tension 28.9 mmHg (35.0-45.0); O2 Tension (PaO2) 88.3 mmHg (80.0-100.0); pH, Arterial 7.42 (7.35-7.45)
[2018-03-10 07:25] LABS: ALV-art Gradient 160.775 (0-20); Calcium, Ionized 1.2 mmol/L (1.12-1.30); Hemoglobin (Hb) 11.6 g/dL (14.0-18.0); Puncture Site ALINE
--- NOTE | 2018-03-10 07:37 | PDOC.PULCC ---
CCU Progress Note: Subj/Obj - Subjective Date: 03/10/18 Time: 07:35 Narrative: Won't follow commands - Objective Allergies/Adverse Reactions: Allergies Allergy/AdvReac Type Severity Reaction Status Date / Time No Known Allergies Allergy Verified 03/07/18 23:45 MAR Reviewed: Yes Vital Signs and I&O: Vital Signs Temp 99.2 F 03/10/18 07:00 Pulse 96 03/10/18 07:07 Resp 25 H 03/10/18 07:06 BP 136/59 L 03/10/18 07:07 Pulse Ox 99 03/10/18 07:06 Intake & Output 03/09/18 03/10/18 03/10/18 18:59 06:59 18:59 Intake Total 2070 2272 Output Total 1430 1528 100 Balance 640 744 -100 Weight 165 lb 5.547 oz Intake: Intake, IV Amount 1822 1679 Propofol 1000 mg (See 236 237 Protocol) IV INF PRN Rx#: [id number] Sodium Chloride 0.9% 1, 1586 1442 000 ml @ 125 mls/hr IV . Q8H SNOW Rx#:[id number] Tube Feeding 248 493 Tube Irrigant 100 Output: Output, Ordaz 1430 1528 100 Other: Voiding Method Indwelling Catheter Indwelling Catheter Vent Setting: SIMV 15/500/peep5/ps10/40% Spontaneous Breathing Test: not done CCU Progress Note: Exam - Physical Exam Deviation from normal: easily agitated when sedation is off HEENT: PERRLA, sclera anicteric Neck: no nodes, no JVD Cardiovascular: RRR Focused Respiratory Location: rhonchi: Right, Left Deviation from normal: lots of yellow secretions Gastrointestinal: soft, non-tender Musculoskeletal: no edema Neurological: moves all 4 limbs Deviation from normal: won't follow commands Lymphatic: no nodes Deviation from normal: unable to assess Skin: no rash CCU Progress Note: Data - Labs Result Diagrams: 03/10/18 04:00 03/10/18 04:00 - ABG Interpretation Attestation: I reviewed and interpreted this ABG. ABG Results: ABG pH 7.42 (7.35-7.45) 03/10/18 06:30 ABG pCO2 28.9 mmHg (35.0-45.0) L 03/10/18 06:30 ABG O2 Sat Calc/Matty 97.2 % (94.0-100.0) 03/10/18 06:30 ABG Base Excess -5.1 mEq/L (0 (+/-) 2.5) L 03/10/18 06:30 Interpretation: normal - Radiology Interpretation Chest x-ray Status: image reviewed by me (no infiltrates) CCU Progress Note: A/P - Problems (1) Acute respiratory failure with hypoxia Current Visit: Yes Status: Acute Code(s): J96.01 - ACUTE RESPIRATORY FAILURE WITH HYPOXIA (2) Acute myocardial infarction Current Visit: Yes Status: Acute Code(s): I21.9 - ACUTE MYOCARDIAL INFARCTION, UNSPECIFIED Qualifiers: Myocardial infarction type: ST elevation myocardial infarction Involved coronary artery: right coronary artery Qualified Code(s): I21.11 - ST elevation (STEMI) myocardial infarction involving right coronary artery (3) Acute renal failure Current Visit: Yes Status: Resolved Qualifiers: Acute renal failure type: unspecified Qualified Code(s): N17.9 - Acute kidney failure, unspecified (4) Cardiopulmonary arrest Current Visit: Yes Status: Acute Code(s): I46.9 - CARDIAC ARREST, CAUSE UNSPECIFIED (5) DKA (diabetic ketoacidoses) Current Visit: Yes Status: Resolved Code(s): E13.10 - OTH DIABETES MELLITUS WITH KETOACIDOSIS WITHOUT COMA (6) Diabetes mellitus Current Visit: Yes Status: Acute Code(s): E11.9 - TYPE 2 DIABETES MELLITUS WITHOUT COMPLICATIONS Qualifiers: Diabetes mellitus type: type 2 (7) Aspiration pneumonia Current Visit: Yes Status: Acute Code(s): J69.0 - PNEUMONITIS DUE TO INHALATION OF FOOD AND VOMIT Qualifiers: Aspiration pneumonia type: unspecified Laterality: bilateral - Time Spent with Patient Time (minutes): 35 (cc time) - Plan Plan: Not weanable due to degree of encephalopathy OK by me to dc A-line if ok with Dr. Warren Add levemir insulin for DM mgmt Add Zosyn for presumed aspiration pneumonia with low grade fever Adjusted vent rate Continue TF prognosis guarded
[2018-03-10] MEDS: Famotidine 20 MG TAB PER TUBE SCH ×2 (08:11→20:36)
[2018-03-10] MEDS: Piperacillin/Tazobactam 3.375 GM in Sodium Chloride 0.9% 100 ML IVPB SCH ×3 (08:11→20:35)
[2018-03-10] MEDS: Propofol 1,000 MG/100 ML VIAL IV PRN ×4 (08:11→20:36)
[2018-03-10] MEDS: Lisinopril 2.5 MG TAB PO SCH (08:12)
[2018-03-10] MEDS: Insulin Detemir 100 UNITS/ML 30 UNITS in Pre-Filled Syringe 1 EACH SC SCH (08:56)
--- NOTE | 2018-03-10 09:17 | RAD ---
PORTABLE AP CHEST X-RAY: 03/10/2018 HISTORY: On ventilator. COMPARISON: 03/09/2018 FINDINGS: Endotracheal tube and nasogastric tube remain in place and unchanged in position. The cardiac silhou ette is magnified by projection. Again noted is slight increased interstitial density in the right m id lung zone, in a perihilar location, which could be related to a developing infiltrate or volume lo ss. The lungs are otherwise clear. Degenerative changes are seen in the spine. No other interval c hange. IMPRESSION: 1. Mild linear densities in the right mid lung zone, which may be related to atelectasis, although a developing infiltrate is not entirely excluded. Follow-up evaluation is suggested. 2. Lines and tubes stable in position. 3. The opacity at the left lung base is less perceptible on the current exam. POS: JOSE JUAN
[2018-03-10] MEDS: Potassium Chloride 40 MEQ in Premix Bag 1 BAG IVPB PRN (10:58)
--- NOTE | 2018-03-10 11:23 | PDOC.PN ---
- Subjective Encounter Start Date: 03/10/18 Encounter Start Time: 11:21 Subjective: intubated, unresponsive - Objective Resuscitation Status: Resuscitation Status FULL:Full Resuscitation MAR Reviewed: Yes Vital Signs & Weight: Vital Signs (12 hours) Temp Pulse Resp BP Pulse Ox 03/10/18 10:51 100.2 F H 03/10/18 10:00 21 H 03/10/18 08:12 96 03/10/18 07:33 99.3 F 96 22 H 99 03/10/18 07:07 96 136/59 L 03/10/18 07:06 105 H 25 H 99 03/10/18 07:00 99.2 F 03/10/18 06:00 18 03/10/18 04:00 20 03/10/18 03:00 99.8 F H 03/10/18 02:07 97 03/10/18 02:00 21 H 03/10/18 00:00 20 03/09/18 23:52 100 Weight Admit Weight 162 lb Weight 165 lb 5.547 oz Most Recent Monitor Data Heart Rate from ECG 102 NIBP 105/72 NIBP BP-Mean 83 Respiration from ECG 22 SpO2 100 I&O: 03/09/18 03/10/18 03/11/18 06:59 06:59 06:59 Intake Total 3868.8 4342 160 Output Total 1665 2958 515 Balance 2203.8 1384 -355 Result Diagrams: 03/10/18 04:00 03/10/18 04:00 Additional Labs: Accuchecks 03/10/18 03/10/18 03/09/18 04:08 00:22 20:26 POC Glucose 232 H 232 H 241 H 03/09/18 03/09/18 17:00 12:40 POC Glucose 249 H 257 H Radiology Reviewed by me: Yes (cxr- ET/NG tubes, no infiltrate) Phys Exam - Physical Examination Neck: no JVD Respiratory: clear to auscultation bilateral Cardiovascular: RRR, no significant murmur Gastrointestinal: soft, non-tender, positive bowel sounds Musculoskeletal: no edema eyes deviated to R, PERRL, DTS diminished, toes neutral Dx/Plan (1) Acute myocardial infarction Code(s): I21.9 - ACUTE MYOCARDIAL INFARCTION, UNSPECIFIED Status: Acute Qualifiers: Myocardial infarction type: ST elevation myocardial infarction Involved coronary artery: right coronary artery Qualified Code(s): I21.11 - ST elevation (STEMI) myocardial infarction involving right coronary artery (2) Cardiopulmonary arrest Code(s): I46.9 - CARDIAC ARREST, CAUSE UNSPECIFIED Status: Acute (3) Acute renal failure Status: Resolved Qualifiers: Acute renal failure type: unspecified Qualified Code(s): N17.9 - Acute kidney failure, unspecified (4) DKA (diabetic ketoacidoses) Code(s): E13.10 - OTH DIABETES MELLITUS WITH KETOACIDOSIS WITHOUT COMA Status : Resolved (5) Hypotension arterial Status: Acute Qualifiers: Hypotension type: unspecified hypotension type Qualified Code(s): I95.9 - Hypotension, unspecified Comment: post cardiac arrest (6) Anoxic brain injury Status: Acute - Plan cont vent support -: enteral nutrition -: accu/ss/detemir -: cont antibx -: discuss with Cadiology/Business Data Analyst * .
--- NOTE | 2018-03-10 12:34 | PDOC.CTH ---
<Nikole Peck - Last Filed: 03/10/18 13:48> Cardiology Progress Note - Subjective The pt seen and examined. No overnight events. Still on Mechanical vent with vent sedation. Per family, the pt did not follow commands when the pt was on vent weaning trial. - Objective Vital Signs Temp Pulse Resp BP Pulse Ox 03/10/18 11:51 22 H 03/10/18 10:51 100.2 F H 03/10/18 10:00 21 H 03/10/18 08:12 96 03/10/18 07:33 99.3 F 96 22 H 99 03/10/18 07:07 96 136/59 L 03/10/18 07:06 105 H 25 H 99 03/10/18 07:00 99.2 F 03/10/18 06:00 18 03/10/18 04:00 20 03/10/18 03:00 99.8 F H 03/10/18 02:07 97 03/10/18 02:00 21 H Admit Weight 162 lb Weight 165 lb 5.547 oz 03/09/18 03/10/18 03/11/18 06:59 06:59 06:59 Intake Total 3868.8 4342 220 Output Total 1665 2958 515 Balance 2203.8 1384 -295 - Physical Examination Neck: no JVD present Lungs: other: (diminished at bases) Heart: RRR Abdomen: soft Extremities: other: - Telemetry Telemetry Rhythm: SR and ST 90-100s - Labs Result Diagrams: 03/10/18 04:00 03/10/18 04:00 Troponin/CKMB CK-MB (CK-2) 161.3 ng/mL (0-6.6) H* 03/08/18 13:37 Troponin I 120.942 ng/mL (< 0.028) H* 03/08/18 13:37 - Assessment/Plan 1. Inferior STEMI and stent in RCA on due to complete RCA on 03/07/18; On BRENT and ASA. Further intervention may be a possibility if the mental status returns to a functional level. 2. S/p Cardiac arrest - Amiodarone is on hold at this moment 3. Hypotension - cont. monitor 4. DKA - managed by PCP 5. BIJAL - improved 6. Encephalopathy - possible due to SCD and Anoxic brain injury. 7. Acute hepatic injury MAR reviewed * ok to d/c sheath. Review of Systems - Review of Systems Constitutional: reports: see HPI EENTM: reports: see HPI Respiratory: reports: see HPI Cardiac (ROS): reports: see HPI ABD/GI: reports: constipated : reports: see HPI <Kaylin Warren Koby - Last Filed: 03/10/18 17:42> Cardiology Progress Note - Objective Vital Signs Temp Pulse Pulse Pulse Resp BP BP 03/10/18 15:53 98.9 F 22 H 03/10/18 14:28 95 89/65 L 03/10/18 14:26 96 20 03/10/18 14:00 19 03/10/18 11:51 22 H 03/10/18 11:04 101 H 101 H 94/72 03/10/18 11:00 94 03/10/18 10:51 100.2 F H 03/10/18 10:00 21 H 03/10/18 08:12 96 03/10/18 07:33 99.3 F 96 22 H 03/10/18 07:07 96 136/59 L 03/10/18 07:06 105 H 25 H 03/10/18 07:00 99.2 F 03/10/18 06:00 18 BP Pulse Ox Pulse Ox Pulse Ox 03/10/18 15:53 03/10/18 14:28 03/10/18 14:26 98 03/10/18 14:00 03/10/18 11:51 03/10/18 11:04 103/73 100 100 03/10/18 11:00 03/10/18 10:51 03/10/18 10:00 03/10/18 08:12 03/10/18 07:33 99 03/10/18 07:07 03/10/18 07:06 99 03/10/18 07:00 03/10/18 06:00 Admit Weight 162 lb Weight 165 lb 5.547 oz 03/09/18 03/10/18 03/11/18 06:59 06:59 06:59 Intake Total 3868.8 4342 320 Output Total 1665 2958 745 Balance 2203.8 1384 -425 - Labs Result Diagrams: 03/10/18 04:00 03/10/18 04:00 Troponin/CKMB CK-MB (CK-2) 161.3 ng/mL (0-6.6) H* 03/08/18 13:37 Troponin I 120.942 ng/mL (< 0.028) H* 03/08/18 13:37 - Assessment/Plan Pt. seen and eval. by me. He is unresponsive and remains on the ventilator. It appears that he received the initial dose of plavix but that was not continued. I will give Lovenox now and resume plavix at 75mg qday. The HR and BP are stable. He likely suffered an RV infarct with the acute inferior ID but he will likely survive this. The neurologic issue remains a proble. We will continue to follow . Chest clear. RRR.
[2018-03-10] MEDS: Clopidogrel Bisulfate 75 MG TAB PO SCH (17:49)
[2018-03-10] MEDS ORDERED: Clopidogrel Bisulfate 75 MG TAB PO SCH (18:00)
[2018-03-10] MEDS ORDERED: Enoxaparin Sodium 60 MG/0.6 ML SYRINGE SC SCH ×2 (21:00)
[2018-03-11] MEDS: Piperacillin/Tazobactam 3.375 GM in Sodium Chloride 0.9% 100 ML IVPB SCH ×4 (01:50→20:32)
[2018-03-11] MEDS: Propofol 1,000 MG/100 ML VIAL IV PRN ×2 (01:50→04:33)
[2018-03-11] MEDS: Insulin Regular 300 UNITS/3 ML VIAL SC PRN ×3 (04:33→11:38)
[2018-03-11 04:50] LABS: Hemoglobin 10.8 g/dL (14.0-18.0); Mean Corpuscular HGB CONC 32.9 g/dL (32.0-36.0); Mean Corpuscular Hemoglobin 32.7 pg (27.0-31.0); Mean Corpuscular Volume 99.4 fl (80.0-94.0); Mean Platelet Volume 8.9 fL (7.4-10.4); Platelet Count 61 thou/uL (130-400); RBC Distribution Width 12.7 % (11.5-14.5); Red Blood Cell (RBC) Count 3.31 mill/uL (4.70-6.10)
[2018-03-11 04:56] LABS: ALT (SGPT) 216 U/L (8-55); AST (SGOT) 57 U/L (5-34); Albumin 2.4 g/dL (3.5-5.0); Alkaline Phosphatase 118 U/L (40-150); Anion Gap 7 mmol/L (10-20); BUN (Urea Nitrogen) 16 mg/dL (8.9-20.6); Bilirubin, Total 0.8 mg/dL (0.2-1.2); Calc. Creatinine Clearance 133 mL/min (70-130); Calcium 8.4 mg/dL (7.8-10.44); Carbon Dioxide 22 mmol/L (22-29); Chloride 120 mmol/L (98-107); Estimated GFR-MDRD Greater than 90; Globulin 2.5 g/dL (2.4-3.5); Glucose 191 mg/dL (70-105); Potassium 3.3 mmol/L (3.5-5.1); Protein, Total 4.9 g/dL (6.0-8.3); Sodium 146 mmol/L (136-145)
[2018-03-11 05:02] LABS: Band 17 % (5-11); Eosinophils 1 % (0-10); Lymphocytes 23 % (21-51); MDiff Complete? YES; Monocytes 4 % (0-10); Neutrophil 55 % (42-75); PLT Morphology Comment Appears Decreased
[2018-03-11 06:45] LABS: Actual Bicarbonate (HCO3a) 20.5 mEq/L (22-26); Base Excess (BEa) -2.7 mEq/L (0 (+/-) 2.5); CO2 Tension 30.5 mmHg (35.0-45.0); Hemoglobin (Hb) 11.3 g/dL (14.0-18.0); O2 Tension (PaO2) 84.4 mmHg (80.0-100.0); pH, Arterial 7.45 (7.35-7.45)
[2018-03-11 06:53] LABS: Calcium, Ionized 1.2 mmol/L (1.12-1.30)
[2018-03-11 06:54] LABS: ALV-art Gradient 162.675 (0-20); Puncture Site RBA
[2018-03-11] MEDS: Sodium Chloride 0.9% 1,000 ML IV SCH (07:21)
[2018-03-11] MEDS: Insulin Detemir 100 UNITS/ML 30 UNITS in Pre-Filled Syringe 1 EACH SC SCH (08:21)
[2018-03-11] MEDS: Lisinopril 2.5 MG TAB PO SCH (08:21)
[2018-03-11] MEDS: Famotidine 20 MG TAB PER TUBE SCH ×2 (08:22→20:32)
--- NOTE | 2018-03-11 08:39 | RAD ---
FRONTAL RADIOGRAPH OF CHEST PORTABLE SEMIUPRIGHT: Date: 03/11/18 COMPARISON: 03/10/18. HISTORY: Ventilated patient. FINDINGS: Stable endotracheal tube and nasogastric tube. No pneumothorax. Dense bibasilar pleural and parenchym al opacity noted suggesting air space disease and pleural fluid. Aeration in the right lung base has slightly worsened when compared to prior imaging. IMPRESSION: Bibasilar pleural and parenchymal opacity suggesting edema. Infectious pneumonitis or aspiration abiodun ot be excluded. Follow-up to resolution advised. POS: JOSE JUAN
[2018-03-11] MEDS ORDERED: Furosemide 20 MG/2 ML VIAL IVP SCH (08:45)
--- NOTE | 2018-03-11 09:06 | PRG ---
DATE OF SERVICE: 03/11/2018 PULMONARY AND CRITICAL CARE PROGRESS NOTE Thirty-five minutes critical care time. SUBJECTIVE: The patient remains in the ICU on mechanical ventilation this morning. He wakes up and follows all commands for me and nods and shakes his head appropriately to questions. PHYSICAL EXAMINATION: VITAL SIGNS: His temperature is 99.8 with T-max of 100.2, pulse 100, blood pressure 110/84. A 24 ho ur intake 4450 and output 1330, weight 164 pounds. HEENT: Pupils react. Sclerae anicteric. Oropharynx clear. NECK: No JVD. LUNGS: Clear without wheezing or rhonchi. CARDIOVASCULAR: S1, S2, slightly tachycardic. ABDOMEN: Soft, nontender, nondistended. EXTREMITIES: No clubbing, cyanosis, or edema. LABORATORY DATA: Sodium 146, potassium 3.3, chloride 120, CO2 22, BUN 16, creatinine 0.7, glucose 19 1, AST 57, ALT 216, albumin 2.4, pH 7.45, pCO2 of 30, pO2 of 84, SIMV rate of 15, tidal volume 500, P EEP 5, pressure support 10, FiO2 40%. White blood count 6.0, hematocrit 32.9, and platelet count 61. ASSESSMENT: 1. Status post cardiac arrest from myocardial infarction. 2. Acute respiratory failure requiring mechanical ventilation. 3. Encephalopathy, which has improved. 4. Diabetes mellitus. 5. Aspiration pneumonitis. 6. Mild hypernatremia. 7. Mild fluid overload on today's x-ray. PLAN: 1. He passed a spontaneous breathing trial. Therefore, I would like to extubate him. 2. Consider holding Plavix given thrombocytopenia - the nurse will clear this with Dr. Warren. 3. Discontinue IV fluids. 4. One dose of Lasix given development of pulmonary edema. 5. We will follow.
--- NOTE | 2018-03-11 09:11 | PDOC.PN ---
- Subjective Encounter Start Date: 03/11/18 Encounter Start Time: 09:09 Subjective: extubated, awake, knows name, follows directions - Objective Resuscitation Status: Resuscitation Status FULL:Full Resuscitation MAR Reviewed: Yes Vital Signs & Weight: Vital Signs (12 hours) Temp Pulse Resp BP Pulse Ox 03/11/18 08:30 106 H 15 98 03/11/18 08:21 93 110/84 03/11/18 08:00 99 F 106 H 15 03/11/18 06:12 93 110/84 100 03/11/18 06:10 94 21 H 100 03/11/18 06:00 21 H 03/11/18 04:00 20 03/11/18 03:00 99.8 F H 03/11/18 02:00 21 H 03/11/18 00:00 20 03/10/18 23:31 96 21 H 100 03/10/18 23:00 99.4 F 03/10/18 22:00 21 H Weight Admit Weight 162 lb Weight 164 lb 14.492 oz Most Recent Monitor Data Heart Rate from ECG 107 NIBP 144/93 NIBP BP-Mean 108 Respiration from ECG 26 SpO2 100 I&O: 03/10/18 03/11/18 03/12/18 06:59 06:59 06:59 Intake Total 4342 4450 135 Output Total 2958 1330 140 Balance 1384 3120 -5 Result Diagrams: 03/11/18 04:30 03/11/18 04:30 Additional Labs: Accuchecks 03/11/18 03/11/18 03/11/18 08:28 04:23 00:14 POC Glucose 234 H 183 H 145 H 03/10/18 03/10/18 03/10/18 20:40 15:38 11:08 POC Glucose 131 H 190 H 199 H 03/10/18 07:49 POC Glucose 198 H Radiology Reviewed by me: Yes (cxr- pulmonary edema) Phys Exam - Physical Examination Constitutional: NAD Neck: no JVD Respiratory: clear to auscultation bilateral Cardiovascular: RRR, no significant murmur Gastrointestinal: soft, non-tender, positive bowel sounds Musculoskeletal: edema present Dx/Plan (1) Acute myocardial infarction Code(s): I21.9 - ACUTE MYOCARDIAL INFARCTION, UNSPECIFIED Status: Acute Qualifiers: Myocardial infarction type: ST elevation myocardial infarction Involved coronary artery: right coronary artery Qualified Code(s): I21.11 - ST elevation (STEMI) myocardial infarction involving right coronary artery (2) Cardiopulmonary arrest Code(s): I46.9 - CARDIAC ARREST, CAUSE UNSPECIFIED Status: Resolved (3) Acute renal failure Status: Resolved Qualifiers: Acute renal failure type: unspecified Qualified Code(s): N17.9 - Acute kidney failure, unspecified (4) DKA (diabetic ketoacidoses) Code(s): E13.10 - OTH DIABETES MELLITUS WITH KETOACIDOSIS WITHOUT COMA Status : Resolved (5) Hypotension arterial Status: Acute Qualifiers: Hypotension type: unspecified hypotension type Qualified Code(s): I95.9 - Hypotension, unspecified Comment: post cardiac arrest (6) Anoxic brain injury Status: Acute - Plan extubated, on NC -: needs swallowing exam. nutrition -: cont accu/ss/detemir -: cont coreg, lisinopril -: iv lasix for pul edema * .
--- NOTE | 2018-03-11 09:15 | PDOC.CTH ---
<Nikole Peck - Last Filed: 03/11/18 09:11> Cardiology Progress Note - Subjective The pt seen and examined. No overnight events. No cardiac complaints. He was extubated today at 0830. Stable with NC. Still confused. - Objective Vital Signs Temp Pulse Resp BP Pulse Ox 03/11/18 08:30 106 H 15 98 03/11/18 08:21 93 110/84 03/11/18 08:00 99 F 106 H 15 03/11/18 06:12 93 110/84 100 03/11/18 06:10 94 21 H 100 03/11/18 06:00 21 H 03/11/18 04:00 20 03/11/18 03:00 99.8 F H 03/11/18 02:00 21 H 03/11/18 00:00 20 03/10/18 23:31 96 21 H 100 03/10/18 23:00 99.4 F 03/10/18 22:00 21 H Admit Weight 162 lb Weight 164 lb 14.492 oz 03/10/18 03/11/18 03/12/18 06:59 06:59 06:59 Intake Total 4342 4450 135 Output Total 2958 1330 140 Balance 1384 3120 -5 - Physical Examination Lungs: other: (diminished at bases) Heart: RRR Abdomen: soft Extremities: other: (No edema) - Telemetry Telemetry Rhythm: [id number] - Labs Result Diagrams: 03/11/18 04:30 03/11/18 04:30 Troponin/CKMB CK-MB (CK-2) 161.3 ng/mL (0-6.6) H* 03/08/18 13:37 Troponin I 120.942 ng/mL (< 0.028) H* 03/08/18 13:37 - Assessment/Plan 1. Inferior STEMI and stent in RCA on due to complete RCA on 03/07/18; On BRENT and ASA. Start Coreg 3.125mg po BID. Cont. Plavix, but hold Lovenox due to low Platelet level. Further intervention may be a possibility if the mental status returns to a functional level. 2. S/p Cardiac arrest - Amiodarone is on hold at this moment 3. Hypotension - stable with Lisinopril 2.5mg daily. Start Coreg 3.125mg BID. Cont. to monitor 4. DKA - managed by PCP 5. BIJAL - improved 6. Encephalopathy - possible due to SCD and Anoxic brain injury. 7. Acute hepatic injury - improving. Cont. to monitor MAR reviewed Review of Systems - Review of Systems Constitutional: reports: no symptoms reported EENTM: reports: no symptoms reported Respiratory: reports: no symptoms reported Cardiac (ROS): reports: no symptoms reported ABD/GI: reports: no symptoms reported : reports: no symptoms reported Musculoskeletal: reports: no symptoms reported <Kaylin Warren - Last Filed: 03/11/18 16:38> Cardiology Progress Note - Objective Vital Signs Temp Pulse Pulse Pulse Resp BP BP 03/11/18 15:33 95 91 89/69 L 03/11/18 15:00 98.7 F 03/11/18 14:07 03/11/18 14:03 91 16 03/11/18 11:00 98.1 F 03/11/18 08:30 106 H 15 03/11/18 08:21 93 110/84 03/11/18 08:00 99 F 106 H 15 03/11/18 06:12 93 110/84 03/11/18 06:10 94 21 H 03/11/18 06:00 21 H BP Pulse Ox Pulse Ox 03/11/18 15:33 94/71 98 03/11/18 15:00 03/11/18 14:07 100 03/11/18 14:03 100 03/11/18 11:00 03/11/18 08:30 98 03/11/18 08:21 03/11/18 08:00 03/11/18 06:12 100 03/11/18 06:10 100 03/11/18 06:00 Admit Weight 162 lb Weight 164 lb 14.492 oz 03/10/18 03/11/18 03/12/18 06:59 06:59 06:59 Intake Total 4342 4450 135 Output Total 2958 1330 2100 Balance 1384 3120 -1965 - Labs Result Diagrams: 03/11/18 04:30 03/11/18 15:21 Troponin/CKMB CK-MB (CK-2) 161.3 ng/mL (0-6.6) H* 03/08/18 13:37 Troponin I 120.942 ng/mL (< 0.028) H* 03/08/18 13:37 - Assessment/Plan Pt. seen and eval. by me. He is extubated and talking some. Seems to understand but still confused. I agree with the A/P by the RN FLOAT.Continue supportive care. Chest clear. RRR. S/P RV infarct.
[2018-03-11] MEDS: Carvedilol 3.125 MG TAB PO SCH ×3 (09:41→17:28)
[2018-03-11] MEDS: Clopidogrel Bisulfate 75 MG TAB PO SCH ×2 (09:42→14:51)
[2018-03-11] MEDS: Potassium Chloride 40 MEQ in Premix Bag 1 BAG IVPB PRN ×2 (09:42→23:56)
[2018-03-11] MEDS: Acetaminophen 650 MG/20.3 ML UDCUP PO PRN (22:58)
[2018-03-12] MEDS: Piperacillin/Tazobactam 3.375 GM in Sodium Chloride 0.9% 100 ML IVPB SCH ×2 (02:06→07:38)
[2018-03-12] MEDS: Insulin Regular 300 UNITS/3 ML VIAL SC PRN ×4 (04:25→16:27)
[2018-03-12 04:50] LABS: Hemoglobin 10.2 g/dL (14.0-18.0); Mean Corpuscular HGB CONC 33.6 g/dL (32.0-36.0); Mean Corpuscular Hemoglobin 33.5 pg (27.0-31.0); Mean Corpuscular Volume 99.8 fl (80.0-94.0); Mean Platelet Volume 8.7 fL (7.4-10.4); Platelet Count 67 thou/uL (130-400); RBC Distribution Width 12.6 % (11.5-14.5); Red Blood Cell (RBC) Count 3.05 mill/uL (4.70-6.10); White Blood Cell (WBC) Count 5.1 thou/uL (4.8-10.8)
[2018-03-12 04:58] LABS: ALT (SGPT) 157 U/L (8-55); AST (SGOT) 47 U/L (5-34); Albumin 2.5 g/dL (3.5-5.0); Alkaline Phosphatase 130 U/L (40-150); Anion Gap 9 mmol/L (10-20); BUN (Urea Nitrogen) 15 mg/dL (8.9-20.6); Calc. Creatinine Clearance 139 mL/min (70-130); Calcium 8.2 mg/dL (7.8-10.44); Carbon Dioxide 26 mmol/L (22-29); Chloride 114 mmol/L (98-107); Estimated GFR-MDRD Greater than 90; Globulin 2.6 g/dL (2.4-3.5); Glucose 155 mg/dL (70-105); Potassium 3.1 mmol/L (3.5-5.1); Protein, Total 5.1 g/dL (6.0-8.3); Sodium 146 mmol/L (136-145)
[2018-03-12 05:12] LABS: Band 5 % (5-11); Lymphocytes 18 % (21-51); MDiff Complete? YES; Macrocytosis SLIGHT = 6-15 cells (100X) (0-5/hpf); Monocytes 8 % (0-10); Neutrophil 69 % (42-75); PLT Morphology Comment Appears Adequate
[2018-03-12] MEDS: Potassium Chloride 40 MEQ in Premix Bag 1 BAG IVPB PRN (06:22)
[2018-03-12] MEDS: Carvedilol 3.125 MG TAB PO SCH ×2 (07:37→16:31)
[2018-03-12] MEDS: Clopidogrel Bisulfate 75 MG TAB PO SCH (07:37)
[2018-03-12] MEDS: Lisinopril 2.5 MG TAB PO SCH (07:38)
[2018-03-12] MEDS: Famotidine 20 MG TAB PER TUBE SCH ×2 (07:38→21:06)
--- NOTE | 2018-03-12 08:57 | PRG ---
DATE OF SERVICE: 03/12/2018 SUBJECTIVE: Mr. Guallpa has made a great recovery. He is up in a chair, very gracious about his ca re. OBJECTIVE: VITAL SIGNS: Temperature 97.9, pulse 90, blood pressure 122/90. Total intake 2613, output 2761, O2 saturation 99%. HEENT: Unremarkable. NECK: Without adenopathy or JVD. LUNGS: Clear without wheezing or rhonchi. CARDIAC: S1, S2 regular without murmur. ABDOMEN: Soft, nontender. EXTREMITIES: No edema. LABORATORY DATA: White blood cell count 5.1, hematocrit 30, platelet count 67. Sodium 146, potassiu m 3.1, chloride 114, CO2 26, BUN 15, creatinine 0.7, glucose 155. AST 47, ALT 157. ASSESSMENT: 1. Status post sudden cardiac related to myocardial infarction. 2. Acute respiratory failure, which is resolved. 3. Encephalopathy, which is improved. 4. Diabetes mellitus. 5. Aspiration pneumonitis. 6. Mild hypernatremia. 7. Diabetes mellitus. PLAN: The patient will be transferred to the telemetry floor where we will focus on physical therapy . His potassium is being replaced. Further care per cardiac team. I will switch his antibiotics to oral therapy and hopefully discontinue after a total of 5 days of treatment.
[2018-03-12] MEDS: Insulin Detemir 100 UNITS/ML 30 UNITS in Pre-Filled Syringe 1 EACH SC SCH (09:00)
[2018-03-12] MEDS: Amoxicillin/Potassium Clav 500 MG TAB PO SCH ×2 (09:03→21:06)
--- NOTE | 2018-03-12 11:48 | PDOC.PN ---
- Subjective Encounter Start Date: 03/12/18 Encounter Start Time: 11:47 Subjective: alert, up in chair - Objective Resuscitation Status: Resuscitation Status FULL:Full Resuscitation MAR Reviewed: Yes Vital Signs & Weight: Vital Signs (12 hours) Temp Pulse Resp BP Pulse Ox 03/12/18 11:27 98.1 F 83 15 121/86 95 03/12/18 10:03 97.8 F 87 16 113/79 96 03/12/18 09:01 92 L 03/12/18 08:57 88 28 H 92 L 03/12/18 08:00 98.9 F 89 18 03/12/18 07:38 89 03/12/18 07:00 98.9 F 03/12/18 04:00 97.9 F 03/12/18 00:00 97.9 F Weight Admit Weight 162 lb Weight 184 lb 4.903 oz Most Recent Monitor Data Heart Rate from ECG 92 NIBP 113/82 NIBP BP-Mean 91 Respiration from ECG 18 SpO2 95 I&O: 03/11/18 03/12/18 03/13/18 06:59 06:59 06:59 Intake Total 4450 2613 612 Output Total 1330 2761 190 Balance 3120 -148 422 Result Diagrams: 03/12/18 04:33 03/12/18 04:33 Additional Labs: Accuchecks 03/12/18 03/12/18 03/12/18 11:12 07:25 04:24 POC Glucose 165 H 188 H 159 H 03/12/18 03/11/18 03/11/18 00:02 20:03 16:27 POC Glucose 150 H 88 86 03/11/18 11:35 POC Glucose 155 H Phys Exam - Physical Examination Neck: no JVD Respiratory: clear to auscultation bilateral Cardiovascular: RRR, no significant murmur Gastrointestinal: soft, non-tender, positive bowel sounds Musculoskeletal: no edema Dx/Plan (1) Acute myocardial infarction Code(s): I21.9 - ACUTE MYOCARDIAL INFARCTION, UNSPECIFIED Status: Acute Qualifiers: Myocardial infarction type: ST elevation myocardial infarction Involved coronary artery: right coronary artery Qualified Code(s): I21.11 - ST elevation (STEMI) myocardial infarction involving right coronary artery (2) Cardiopulmonary arrest Code(s): I46.9 - CARDIAC ARREST, CAUSE UNSPECIFIED Status: Resolved (3) Acute renal failure Status: Resolved Qualifiers: Acute renal failure type: unspecified Qualified Code(s): N17.9 - Acute kidney failure, unspecified (4) DKA (diabetic ketoacidoses) Code(s): E13.10 - OTH DIABETES MELLITUS WITH KETOACIDOSIS WITHOUT COMA Status : Resolved (5) Hypotension arterial Status: Resolved Qualifiers: Hypotension type: unspecified hypotension type Qualified Code(s): I95.9 - Hypotension, unspecified Comment: post cardiac arrest (6) Anoxic brain injury Status: Resolved - Plan cont ASA, coreg, plavix, BRENT -: cont accu/ss/detemir -: PT -: almost miraculous recovery, consider rehab referral post acute care * .
--- NOTE | 2018-03-12 20:04 | PRG ---
DATE OF SERVICE: 03/12/2018 SUBJECTIVE: Ramu is doing well. He is out on the floor and telemetry. He is feeling better, no complaints, no chest pain or pressure. PHYSICAL EXAMINATION: VITAL SIGNS: Blood pressure 128/86, pulse 90, it is regular. LUNGS: Clear. CARDIAC: Normal S1, normal S2. ABDOMEN: Soft, nontender. EXTREMITIES: There is no edema. ASSESSMENT: 1. Status post cardiac arrest with acute myocardial infarction. 2. Successful stent implantation. PLAN: 1. The patient is on aspirin. 2. Clopidogrel. 3. Carvedilol. 4. Lisinopril, doing well. Continue to follow with you.
[2018-03-13 05:18] LABS: Anion Gap 10 mmol/L (10-20); BUN (Urea Nitrogen) 13 mg/dL (8.9-20.6); Calc. Creatinine Clearance 194 mL/min (70-130); Calcium 8.7 mg/dL (7.8-10.44); Carbon Dioxide 25 mmol/L (22-29); Chloride 111 mmol/L (98-107); Estimated GFR-MDRD Greater than 90; Glucose 75 mg/dL (70-105); Sodium 143 mmol/L (136-145)
[2018-03-13] MEDS: Carvedilol 3.125 MG TAB PO SCH (08:31)
[2018-03-13] MEDS: Famotidine 20 MG TAB PER TUBE SCH ×2 (08:32→21:05)
[2018-03-13] MEDS: Amoxicillin/Potassium Clav 500 MG TAB PO SCH ×2 (08:32→21:05)
[2018-03-13] MEDS: Insulin Detemir 100 UNITS/ML 30 UNITS in Pre-Filled Syringe 1 EACH SC SCH (08:32)
[2018-03-13] MEDS: Clopidogrel Bisulfate 75 MG TAB PO SCH (08:32)
[2018-03-13] MEDS: Lisinopril 2.5 MG TAB PO SCH (08:32)
--- NOTE | 2018-03-13 08:41 | EKG ---
Test Reason : Blood Pressure : / mmHG Vent. Rate : 129 BPM Atrial Rate : 129 BPM P-R Int : 206 ms QRS Dur : 156 ms QT Int : 400 ms P-R-T Axes : 099 052 234 degrees QTc Int : 586 ms Wide complex tachycardia suggesting VT Abnormal ECG No previous ECGs available Confirmed by JOSE RAMON SU, MARIA C ([id number]) on 03/13/2018 8:41:32 AM Referred By: FABIOLA Confirmed By:MARIA C ALBRIGHT MD
--- NOTE | 2018-03-13 12:05 | PDOC.CTH ---
<Faye Mccurdy - Last Filed: 03/13/18 14:52> Cardiology Progress Note - Subjective Awake, eating lunch. Denies chest pain, discomfort or heaviness. Denies shortness of breath, PND, or orthopnea. Ambulates in halls frequently, no problems with activity. No overnight events. - Objective Vital Signs Temp Pulse Resp BP BP Pulse Ox 03/13/18 11:33 98.5 F 83 16 115/77 93 L 03/13/18 08:32 82 03/13/18 08:29 98.2 F 82 17 124/83 97 03/13/18 06:51 71 16 03/13/18 05:03 98.3 F 73 14 106/74 92 L Admit Weight 162 lb Weight 185 lb 03/12/18 03/13/18 03/14/18 06:59 06:59 06:59 Intake Total 2613 1452 Output Total 2761 740 Balance -148 712 - Physical Examination General/Neuro: alert & oriented x3, NAD Neck: no JVD present (neck veins flat, no distention) Lungs: CTA, unlabored respirations Heart: RRR Abdomen: NT/ND, soft - Telemetry Telemetry Rhythm: SR 70s-80s - Labs Result Diagrams: 03/12/18 04:33 03/13/18 04:13 Troponin/CKMB CK-MB (CK-2) 161.3 ng/mL (0-6.6) H* 03/08/18 13:37 Troponin I 120.942 ng/mL (< 0.028) H* 03/08/18 13:37 - Assessment/Plan 1. Inferior STEMI, cardiac arrest- s/p CLARICE to complete occlusion in RCA on 03/07, cont. clopidogrel, ASA. Plt count remains low at 67-no enoxaparin. 2. Hypotension - improved, cont lisinopril 2.5mg, low-dose carvedilol 3.125mg- titrate up as tolerated 3.Hypokalemia-K+ 3.0 today, 40 mEq x1 dose now 4. DKA - managed by PCP 5. BIJAL - improved <Melchor Moncada - Last Filed: 03/13/18 14:55> Cardiology Progress Note - Objective Vital Signs Temp Pulse Resp BP BP Pulse Ox 04/22/18 11:33 98.5 F 83 16 115/77 93 L 03/13/18 08:32 82 03/13/18 08:29 98.2 F 82 17 124/83 97 03/13/18 06:51 71 16 03/13/18 05:03 98.3 F 73 14 106/74 92 L Admit Weight 162 lb Weight 185 lb 03/12/18 03/13/18 03/14/18 06:59 06:59 06:59 Intake Total 2613 1452 Output Total 7261 740 Balance -148 712 - Labs Result Diagrams: 03/12/18 04:33 03/13/18 04:13 Troponin/CKMB CK-MB (CK-2) 161.3 ng/mL (0-6.6) H* 03/08/18 13:37 Troponin I 120.942 ng/mL (< 0.028) H* 03/08/18 13:37 Attending Addendum - Attending Addendum Date/Time: 03/13/18 [id number] I personally evaluated the patient and discussed the management with Faye Mccurdy NP I agree with the History, Examination, Assessment and Plan documented above with any addition or exceptions noted below.
[2018-03-13] MEDS: Insulin Regular 300 UNITS/3 ML VIAL SC PRN (13:08)
--- NOTE | 2018-03-13 13:08 | PDOC.PN ---
- Subjective Encounter Start Date: 03/13/18 Encounter Start Time: 13:07 Patient seen and examined, no new issues or complaints, all questions answered. - Objective Resuscitation Status: Resuscitation Status FULL:Full Resuscitation Vital Signs & Weight: Vital Signs (12 hours) Temp Pulse Resp BP BP Pulse Ox 03/13/18 11:33 98.5 F 83 16 115/77 93 L 03/13/18 08:32 82 03/13/18 08:29 98.2 F 82 17 124/83 97 03/13/18 06:51 71 16 03/13/18 05:03 98.3 F 73 14 106/74 92 L Weight Admit Weight 162 lb Weight 185 lb Most Recent Monitor Data Heart Rate from ECG 92 NIBP 113/82 NIBP BP-Mean 91 Respiration from ECG 18 SpO2 95 I&O: 03/12/18 03/13/18 03/14/18 06:59 06:59 06:59 Intake Total 2613 1452 Output Total 2761 740 Balance -148 712 Result Diagrams: 03/12/18 04:33 03/13/18 04:13 Additional Labs: Accuchecks 03/13/18 03/13/18 03/12/18 12:06 08:24 23:50 POC Glucose 225 H 83 86 03/12/18 03/12/18 20:40 16:12 POC Glucose 87 380 H Phys Exam - Physical Examination Constitutional: NAD HEENT: PERRLA, moist MMs, sclera anicteric Neck: no nodes, no JVD, supple Respiratory: no wheezing, no rales, no rhonchi Cardiovascular: RRR, no significant murmur, no rub Gastrointestinal: soft, non-tender, no distention Musculoskeletal: no edema, pulses present Neurological: non-focal, normal sensation Dx/Plan (1) Acute myocardial infarction Code(s): I21.9 - ACUTE MYOCARDIAL INFARCTION, UNSPECIFIED Status: Acute Qualifiers: Myocardial infarction type: ST elevation myocardial infarction Involved coronary artery: right coronary artery Qualified Code(s): I21.11 - ST elevation (STEMI) myocardial infarction involving right coronary artery (2) Acute respiratory failure with hypoxia Code(s): J96.01 - ACUTE RESPIRATORY FAILURE WITH HYPOXIA Status: Acute (3) Diabetes mellitus Code(s): E11.9 - TYPE 2 DIABETES MELLITUS WITHOUT COMPLICATIONS Status: Acute Qualifiers: Diabetes mellitus type: type 2 (4) Cardiopulmonary arrest Code(s): I46.9 - CARDIAC ARREST, CAUSE UNSPECIFIED Status: Resolved (5) DKA (diabetic ketoacidoses) Code(s): E13.10 - OTH DIABETES MELLITUS WITH KETOACIDOSIS WITHOUT COMA Status : Resolved - Plan * continue current medical plan of care with no changes * pending placement to rehab * DC plans once rehab arrangements made * case and plan d/w patient at length, he understands and agrees with this plan
[2018-03-13] MEDS ORDERED: Potassium Chloride 20 MEQ TAB PO SCH (15:00)
--- NOTE | 2018-03-13 15:57 | PRG ---
DATE OF SERVICE: 03/13/2018 SUBJECTIVE: The patient is doing well, no complaints. He is walking around the mohan with his . PHYSICAL EXAMINATION: VITAL SIGNS: Temperature 98.5, pulse 83, respirations 16, O2 sat 93%, blood pressure 115/77. HEENT: Unremarkable. NECK: No JVD. CHEST: Clear without wheezing or rhonchi. CARDIAC: S1 and S2 regular. ABDOMEN: Soft. EXTREMITIES: No edema. LABORATORY DATA: Sodium 143, potassium 3, chloride 111, CO2 25, BUN 13, creatinine 0.5, and glucose 75. ASSESSMENT: 1. Myocardial infarction. 2. Status post severe hyperglycemia. 3. Status post acute respiratory failure requiring mechanical ventilation. PLAN: The patient should be stable to go home soon from Pulmonary standpoint. I believe that his an tibiotics can be stopped at the time of discharge. He does not require follow up with us after disch arge. I will sign off the case. Please recall if further assistance needed.
[2018-03-13] MEDS: Carvedilol 6.25 MG TAB PO SCH (16:57)
[2018-03-13] MEDS ORDERED: Carvedilol 3.125 MG TAB PO SCH (17:00)
[2018-03-14 05:23] LABS: Anion Gap 10 mmol/L (10-20); BUN (Urea Nitrogen) 13 mg/dL (8.9-20.6); Calc. Creatinine Clearance 153 mL/min (70-130); Carbon Dioxide 27 mmol/L (22-29); Chloride 104 mmol/L (98-107); Estimated GFR-MDRD Greater than 90; Glucose 221 mg/dL (70-105); Potassium 3.8 mmol/L (3.5-5.1); Sodium 137 mmol/L (136-145)
[2018-03-14] MEDS ORDERED: Clopidogrel Bisulfate 75 MG TAB ONE (07:56)
[2018-03-14] MEDS: Insulin Detemir 100 UNITS/ML 30 UNITS in Pre-Filled Syringe 1 EACH SC SCH (08:18)
[2018-03-14] MEDS: Amoxicillin/Potassium Clav 500 MG TAB PO SCH (08:19)
[2018-03-14] MEDS: Clopidogrel Bisulfate 75 MG TAB PO SCH (08:19)
[2018-03-14] MEDS: Insulin Regular 300 UNITS/3 ML VIAL SC PRN (08:19)
[2018-03-14] MEDS: Carvedilol 6.25 MG TAB PO SCH ×2 (08:19→16:19)
[2018-03-14] MEDS: Lisinopril 2.5 MG TAB PO SCH (08:20)
[2018-03-14] MEDS: Famotidine 20 MG TAB PER TUBE SCH (08:20)
--- NOTE | 2018-03-14 09:02 | PDOC.PN ---
- Subjective Encounter Start Date: 03/14/18 Encounter Start Time: 09:00 -: old records requested/rev Subjective: nsg notes rev, luna ovn, no new c/o, wants to know if cardiology will stop -: by as he is concerned about getting his medications and wants to know if he -: can go home today - Objective Resuscitation Status: Resuscitation Status FULL:Full Resuscitation Vital Signs & Weight: Vital Signs (12 hours) Temp Pulse Resp BP BP Pulse Ox 03/14/18 08:20 87 03/14/18 08:19 110/84 03/14/18 07:42 98.2 F 87 18 112/77 95 03/14/18 07:26 98 03/14/18 07:25 58 L 18 98 03/14/18 03:21 98.4 F 87 17 99/60 93 L 03/13/18 23:05 80 18 95 Weight Admit Weight 162 lb Weight 186 lb 11.2 oz Most Recent Monitor Data Heart Rate from ECG 92 NIBP 113/82 NIBP BP-Mean 91 Respiration from ECG 18 SpO2 95 I&O: 03/13/18 03/14/18 03/15/18 06:59 06:59 06:59 Intake Total 1452 1940 Output Total 740 1250 Balance 712 690 Result Diagrams: 03/12/18 04:33 03/14/18 04:53 Additional Labs: Accuchecks 03/14/18 03/13/18 03/13/18 08:06 20:57 16:18 POC Glucose 268 H 76 62 L 03/13/18 03/13/18 13:07 12:06 POC Glucose 226 H 225 H Phys Exam - Physical Examination Constitutional: NAD seated on hospital bed HEENT: PERRLA, moist MMs, sclera anicteric, oral pharynx no lesions Respiratory: no wheezing, no rales, no rhonchi, clear to auscultation bilateral Cardiovascular: RRR, no significant murmur, no rub Gastrointestinal: soft, non-tender, positive bowel sounds Musculoskeletal: pulses present trace b/l pitting pedal edema Neurological: moves all 4 limbs Psychiatric: normal affect, A&O x 3 Dx/Plan - Plan * .(1) Acute myocardial infarction ST elevation (STEMI) myocardial infarction involving right coronary artery continue medical care apprec card c/s (2) Acute respiratory failure with hypoxia resolved apprec pulm c/s (3) Diabetes mellitus stable (4) Cardiopulmonary arrest with lactic acidosis resolved (5) DKA (diabetic ketoacidoses) resolved - Plan plan for d/c later today if coordination for o/p f/u and meds diet: as sidney, diabetic, cardiac activity: as sidney Review of Systems - Medications/Allergies Allergies/Adverse Reactions: Allergies Allergy/AdvReac Type Severity Reaction Status Date / Time No Known Allergies Allergy Verified 03/07/18 23:45 Medications: Current Medications Acetaminophen (Tylenol Elixir) 650 mg PO Q6H PRN PRN Reason: Fever > 101 or Mild Pain Last Admin: 03/11/18 22:58 Dose: 650 mg Acetaminophen (Tylenol) 650 mg [place] Q6H PRN PRN Reason: Fever > 101 or Mild Pain Al Hydroxide/Mg Hydroxide (Maalox) 30 ml PO Q8H PRN PRN Reason: Indigestion Albuterol/Ipratropium (Duoneb) 3 ml NEB [id number] [facility] Last Admin: 03/14/18 07:25 Dose: 3 ml Amoxicillin/Clavulanate Potassium (Augmentin) 500 mg PO Q12HR [facility] Last Admin: 03/14/18 08:19 Dose: 500 mg Aspirin (Aspirin Chewable) 81 mg PO DAILY [facility] Last Admin: 03/14/18 08:19 Dose: 81 mg Bisacodyl (Dulcolax) 10 mg [place] DAILYPRN PRN PRN Reason: Constipation Carvedilol (Coreg) 6.25 mg PO BID-[facility] Last Admin: 03/14/18 08:19 Dose: 6.25 mg Clopidogrel Bisulfate (Plavix) 75 mg PO DAILY [facility] Last Admin: 03/14/18 08:19 Dose: 75 mg Dextrose/Water (Dextrose 50%) 25 gm IVP PRN PRN PRN Reason: HYPOGLYCEMIA PROTOCOL Famotidine (Pepcid) 20 mg PER TUBE BID [facility] Last Admin: 03/14/18 08:20 Dose: 20 mg Glucagon (Glucagon) 1 mg IM PRN PRN PRN Reason: HYPOGLYCEMIA PROTOCOL Dextrose/Water (D5w) 1,000 mls @ 0 mls/hr IV INF PRN; As Directed PRN Reason: HYPOGLYCEMIA PROTOCOL Insulin Detemir 30 units/ (Miscellaneous Medication) 0.3 mls @ 0 mls/hr SC QAM [facility] Last Admin: 03/14/18 08:18 Dose: 0.3 mls Insulin Human Regular (Humulin R) 0 units SC .AGGRESSIVE SLIDING PRN; Protocol PRN Reason: AGGRESSIVE SLIDING SCALE Last Admin: 03/14/18 08:19 Dose: 9 unit Lisinopril (Zestril) 2.5 mg PO DAILY [facility] Last Admin: 03/14/18 08:20 Dose: 2.5 mg Ondansetron HCl (Zofran) 4 mg IVP Q6H PRN PRN Reason: Nausea/Vomiting
[2018-03-14 15:00] VITALS: BMI 27.6
[2018-03-14 15:44] VITALS: BP 114/77; TEMP 98
--- NOTE | 2018-03-14 15:49 | PDOC.CTH ---
<Nikole Peck - Last Filed: 03/14/18 15:45> Cardiology Progress Note - Subjective The pt seen and examined. No overnight events. No cardiac complaints. He walks around Nursing station without any difficulties. - Objective Vital Signs Temp Pulse Resp BP BP BP Pulse Ox 03/14/18 15:14 98.0 F 80 15 114/77 95 03/14/18 14:38 86 18 97 03/14/18 11:19 98.3 F 98 17 103/57 L 99 03/14/18 08:20 87 03/14/18 08:19 110/84 03/14/18 07:42 98.2 F 87 18 112/77 95 03/14/18 07:26 98 03/14/18 07:25 58 L 18 98 Admit Weight 162 lb 14.746 oz Weight 186 lb 11.2 oz 03/13/18 03/14/18 03/15/18 06:59 06:59 06:59 Intake Total 1452 1940 Output Total 740 1250 Balance 712 690 - Physical Examination General/Neuro: alert & oriented x3 Neck: no JVD present Lungs: CTA Heart: RRR Abdomen: soft Extremities: other: (No edema) - Telemetry Telemetry Rhythm: SR - Labs Result Diagrams: 03/12/18 04:33 03/14/18 04:53 Troponin/CKMB CK-MB (CK-2) 161.3 ng/mL (0-6.6) H* 03/08/18 13:37 Troponin I 120.942 ng/mL (< 0.028) H* 03/08/18 13:37 - Assessment/Plan 1. Inferior STEMI and stent in RCA on due to complete RCA on 03/07/18; On Lisinopril 2.5mg daily, Coreg 6.25mg BID, Plavix, and ASA. Resume Simvastatin 10mg daily from today. Further intervention, such as another stress test as outpt, may be a possibility. 2. S/p Cardiac arrest - Amiodarone is on hold at this moment 3. Hypotension - stable with Lisinopril 2.5mg daily and Coreg 6.125mg BID; Cont. to monitor 4. DKA - managed by PCP 5. BIJAL - improved 6. Encephalopathy - possible due to SCD and Anoxic brain injury. 7. Acute hepatic injury - improving. Cont. to monitor 8. BLE edema - Lasix 10mg IV x 1 now before discharge. MAR reviewed * From cardiac standpoint, the pt is stable to d/c home. The pt will f/u with Dr Warren' office within 2-4 wks with possible another stress test as outpt. Review of Systems - Review of Systems Constitutional: reports: no symptoms reported EENTM: reports: no symptoms reported Respiratory: reports: no symptoms reported Cardiac (ROS): reports: no symptoms reported ABD/GI: reports: no symptoms reported : reports: no symptoms reported Musculoskeletal: reports: no symptoms reported <Kaylin Warren - Last Filed: 03/14/18 19:47> Cardiology Progress Note - Objective Vital Signs Temp Pulse Resp BP BP Pulse Ox 03/14/18 15:14 98.0 F 80 15 114/77 95 03/14/18 14:38 86 18 97 03/14/18 11:19 98.3 F 98 17 103/57 L 99 03/14/18 08:20 87 03/14/18 08:19 110/84 Admit Weight 162 lb 14.746 oz Weight 186 lb 11.2 oz 03/13/18 03/14/18 03/15/18 06:59 06:59 06:59 Intake Total 1452 1940 Output Total 740 1250 Balance 712 690 - Labs Result Diagrams: 03/12/18 04:33 03/14/18 04:53 Troponin/CKMB CK-MB (CK-2) 161.3 ng/mL (0-6.6) H* 03/08/18 13:37 Troponin I 120.942 ng/mL (< 0.028) H* 03/08/18 13:37 - Assessment/Plan pt. seen and eval. by me. i agree with the A/P by the [employer]. He has done well since his [place]. He had an RV infarct and will need time to recover. He has lower extremity edema and diuretics at a low dose are advised. I will see him back in my office in 2-4 weeks.
[2018-03-14] MEDS ORDERED: Furosemide 20 MG/2 ML VIAL SLOW IVP SCH (16:00)
== END 2018-03-14 17:32 | disposition home or self-care (01) | DRG 246 ==
LOC: ERS 16:55 → EDBD 16:55 → CCU 18:31 → 2NO 03-12 09:58
PROVIDERS: ADMIT Internal Medicine; ATTEND Internal Medicine
PROC: 5A1955Z Respiratory Ventilation, Greater than 96 Consecutive Hours (ICD-10-PCS; principal; 2018-03-07)
PROC: 027034Z Dilation of Coronary Artery, One Artery with Drug-eluting Intraluminal Device, Percutaneous Approach (ICD-10-PCS; 2018-03-07)
PROC: 02C03ZZ Extirpation of Matter from Coronary Artery, One Artery, Percutaneous Approach (ICD-10-PCS; 2018-03-07)
PROC: 3E033XZ Introduction of Vasopressor into Peripheral Vein, Percutaneous Approach (ICD-10-PCS; 2018-03-07)
PROC: 4A023N7 Measurement of Cardiac Sampling and Pressure, Left Heart, Percutaneous Approach (ICD-10-PCS; 2018-03-07)
PROC: B2111ZZ Fluoroscopy of Multiple Coronary Arteries using Low Osmolar Contrast (ICD-10-PCS; 2018-03-07)
PROC: B2151ZZ Fluoroscopy of Left Heart using Low Osmolar Contrast (ICD-10-PCS; 2018-03-07)
DX: I21.11 ST elevation (STEMI) myocardial infarction involving right coronary artery (principal); J96.00 Acute respiratory failure, unspecified whether with hypoxia or hypercapnia; I46.2 Cardiac arrest due to underlying cardiac condition; J69.0 Pneumonitis due to inhalation of food and vomit; G93.1 Anoxic brain damage, not elsewhere classified; E11.10 Type 2 diabetes mellitus with ketoacidosis without coma; N17.9 Acute kidney failure, unspecified; S36.119A Unspecified injury of liver, initial encounter; E87.0 Hyperosmolality and hypernatremia; E87.2 Acidosis; E87.1 Hypo-osmolality and hyponatremia; I95.9 Hypotension, unspecified; I24.9 Acute ischemic heart disease, unspecified; E78.5 Hyperlipidemia, unspecified; I10 Essential (primary) hypertension; V43.52XA Car driver injured in collision with other type car in traffic accident, initial encounter; Z79.84 Long term (current) use of oral hypoglycemic drugs; T38.3X6A Underdosing of insulin and oral hypoglycemic [antidiabetic] drugs, initial encounter; Z91.120 Patient's intentional underdosing of medication regimen due to financial hardship; F10.10 Alcohol abuse, uncomplicated; E78.00 Pure hypercholesterolemia, unspecified; I25.10 Atherosclerotic heart disease of native coronary artery without angina pectoris; Z79.82 Long term (current) use of aspirin
CPT/HCPCS: 36415; 36416; 36556; 51702; 70450; 71045; 76705; 80048; 80053; 80074; 80306; 80307; 81003; 81015; 82010; 82248; 82550; 82553; 82805; 83735; 83880; 84100; 84146; 84484; 85007; 85025; 85027; 85610; 85730; 87040; 87070; 87077; 87186; 87205; 92928; 92973; 93005; 93010; 93306; 93458; 94002; 94003; 94640; 96365; 96366; 96367; 96368; 96375; 96376; C1725; C1757; C1769; C1876; C1887; G8978-GP-CN; G8979-GP-CK; G8996-GN-CI; G8997-GN-CI; J0171; J0282; J0583; J1265; J1644; J1815; J1940; J2001; J2060; J2250; J2310; J2543; J2704; J3010; J3480; J7050; J7070; J7620

== ENCOUNTER 2019-09-29 08:07 | Outpatient (CLI) | payer OTHER ==
[2019-09-29 13:37] LABS: #Basophils 0.1 thou/uL (0.0-0.2); #Eosinphils 0.7 thou/uL (0.0-0.7); #Lymphocytes 2.8 thou/uL (1.20-3.40); #Monocytes 0.5 thou/uL (0.11-0.59); #Neutrophils 5.9 thou/uL (1.40-6.50); %Basophils 0.7 % (0.0-1.0); %Lymphocytes 28.1 % (21.0-51.0); %Monocytes 4.8 % (0.0-10.0); %Neutrophils 59.4 % (42.0-75.0); Hemoglobin 16.3 g/dL (14.0-18.0); Mean Corpuscular HGB CONC 33.2 g/dL (32.0-36.0); Mean Corpuscular Hemoglobin 32.2 pg (27.0-31.0); Mean Corpuscular Volume 96.9 fL (78.0-98.0); Platelet Count 134 thou/uL (130-400); RBC Distribution Width 12.5 % (11.5-14.5); Red Blood Cell (RBC) Count 5.07 mill/uL (4.70-6.10)
[2019-09-29 14:12] LABS: Anion Gap 17 mmol/L (10-20); BUN (Urea Nitrogen) 20 mg/dL (8.9-20.6); Calc. Creatinine Clearance 0 mL/min (70-130); Calcium 9.2 mg/dL (7.8-10.44); Carbon Dioxide 19 mmol/L (22-29); Chloride 104 mmol/L (98-107); Estimated GFR-MDRD 45; Glucose 316 mg/dL (70-105); Potassium 4.9 mmol/L (3.5-5.1); Sodium 135 mmol/L (136-145)
--- NOTE | 2019-09-29 14:28 | EKG ---
Test Reason : Blood Pressure : / mmHG Vent. Rate : 083 BPM Atrial Rate : 083 BPM P-R Int : 142 ms QRS Dur : 090 ms QT Int : 346 ms P-R-T Axes : 062 068 024 degrees QTc Int : 406 ms Normal sinus rhythm repolarization variant Confirmed by DR. Leyla MADERA ([id number]) on 09/29/2019 2:28:05 PM Referred By: [email or web address] Confirmed By:DR. Leyla MADERA
== END 2019-09-29 08:08 | disposition home or self-care (01) ==
LOC: LABBT 08:07
PROVIDERS: ATTEND Specialist
DX: Z01.818 Encounter for other preprocedural examination (principal); L72.9 Follicular cyst of the skin and subcutaneous tissue, unspecified
CPT/HCPCS: 80048; 85025; 93005; 93010

== ENCOUNTER 2024-08-17 15:20 | Outpatient (CLI) | payer OTHER | END 2024-08-17 15:21 | disposition home or self-care (01) | LOC: BICRAD 15:20 | PROVIDERS: ATTEND Internal Medicine | DX: Z02.71 Encounter for disability determination (principal) | CPT/HCPCS: 71046 ==